=== PATIENT | female | born 1950 | race African-American/Black ===

== ENCOUNTER 2017-06-08 17:04 | Inpatient (IN) | payer MEDICARE ==
[2017-06-08] MEDS: Acetaminophen 500 MG TAB PO PRN (19:39)
[2017-06-08] MEDS ORDERED: Lorazepam 0.5 MG TAB PO SCH (21:00)
[2017-06-08] MEDS: Lorazepam 1 MG TAB PO SCH (21:01)
[2017-06-08] MEDS: Famotidine 20 MG TAB PO SCH (21:01)
[2017-06-08] MEDS: Gabapentin 100 MG CAP PO SCH (21:02)
[2017-06-08] MEDS: Levemir Flexpen 100 UNITS/ML PEN SC SCH (21:02)
[2017-06-08] MEDS: Carvedilol 25 MG TAB PO SCH (21:02)
[2017-06-09 05:59] LABS: ALT (SGPT) 6 U/L (8-55); AST (SGOT) 11 U/L (5-34); Albumin 2.9 g/dL (3.4-4.8); Alkaline Phosphatase 60 U/L (40-150); Anion Gap 15 mmol/L (10-20); BUN (Urea Nitrogen) 114 mg/dL (9.8-20.1); Bilirubin, Total 0.3 mg/dL (0.2-1.2); Calc. Creatinine Clearance 52 mL/min (70-130); Calcium 9.4 mg/dL (7.8-10.44); Carbon Dioxide 27 mmol/L (23-31); Chloride 105 mmol/L (98-107); Estimated GFR-MDRD 25; Globulin 4.3 g/dL (2.4-3.5); Glucose 159 mg/dL (80-115); Potassium 5.2 mmol/L (3.5-5.1); Protein, Total 7.2 g/dL (6.0-8.3); Sodium 142 mmol/L (136-145)
[2017-06-09 06:00] LABS: #Basophils 0.1 thou/uL (0.0-0.2); #Eosinphils 0.3 thou/uL (0.0-0.7); #Lymphocytes 1.3 thou/uL (1.20-3.40); #Neutrophils 6.4 thou/uL (1.40-6.50); %Basophils 1.2 % (0.0-1.0); %Eosinophils 3.3 % (0.0-10.0); %Lymphocytes 13.8 % (21.0-51.0); %Monocytes 11.3 % (0.0-10.0); %Neutrophils 70.4 % (42.0-75.0); Hemoglobin 7.4 g/dL (12.0-16.0); Hypochromia MARKED = >30 cells (100X) (0-5/hpf); MDiff Complete? YES; Mean Corpuscular HGB CONC 29.8 g/dL (32.0-36.0); Mean Corpuscular Hemoglobin 24.8 pg (27.0-31.0); Mean Corpuscular Volume 83.1 fl (81.0-99.0); PLT Morphology Comment Appears Adequate; Platelet Count 284 thou/uL (130-400); RBC Distribution Width 15.5 % (11.5-14.5); Red Blood Cell (RBC) Count 2.99 mill/uL (4.20-5.40)
[2017-06-09] MEDS ORDERED: FLU VACC QS2017-18 36 mo. & older 0.5 ML SYRINGE IM ONE (09:00)
[2017-06-09] MEDS ORDERED: Potassium Chloride 20 MEQ TAB PO SCH (09:00)
[2017-06-09] MEDS ORDERED: Prevnar 13-Val Conj/PF 0.5 ML SYRINGE IM ONE (09:00)
[2017-06-09] MEDS ORDERED: Anastrozole 1 MG TAB PO SCH (09:00)
[2017-06-09] MEDS ORDERED: Meloxicam 7.5 MG TAB PO SCH (09:00)
[2017-06-09] MEDS ORDERED: Furosemide 80 MG TAB PO SCH (09:00)
[2017-06-09] MEDS: Gabapentin 100 MG CAP PO SCH (09:36)
[2017-06-09] MEDS: Carvedilol 25 MG TAB PO SCH ×2 (09:36→20:21)
[2017-06-09] MEDS: Famotidine 20 MG TAB PO SCH (09:36)
[2017-06-09] MEDS: Levemir Flexpen 100 UNITS/ML PEN SC SCH ×2 (09:44→20:31)
--- NOTE | 2017-06-09 10:29 | RAD ---
PORTABLE CHEST: History: Malignant right pleural effusion. History of breast cancer. FINDINGS: Heart size is markedly enlarged. Pulmonary vessels appear engorged. There appears to be a large right sided pleural effusion with associated atelectasis in the right base. IMPRESSION: Cardiomegaly with pulmonary vasculature engorgement suggesting an element of edema. There is also a l arge pleural effusion. POS: [facility]
--- NOTE | 2017-06-09 11:03 | HP ---
DATE OF ADMISSION: 06/08/2017 HISTORY OF PRESENT ILLNESS: The patient is a very pleasant 66-year-old black female admitted to [facility] on 06/01/2017 with shortness of breath and edema, was found to have an exa cerbation of diastolic heart failure. She has a history of chronic kidney disease stage 4 secondary to diabetes being followed by Dr. Lewis and was seen and felt to be stable for diuresis. She was d iuresed over the next several days, felt much better. Her renal function remained stable with GFR ar ound 25. She continued to have problems with pain in her feet; however, secondary to diabetic neurop athy which has been there for years, but was exacerbated by this admission. Her Accu-Cheks remained fairly stable, ranging from 150-200. She, however, was found to have mild right hydronephrosis and a n E. coli urinary tract infection, was treated with antibiotics with resolution, but she was also fou nd to have a right pleural effusion, which appears to be loculated on CT scan, but thoracentesis unde r scan was done and returned positive for malignant cells. She has a history of cancer of the breast , status post left mastectomy 10 years ago, being followed by Dr. Edmonds with appointment to be sche duled soon. At this time, the patient feels well except for her neuropathy in her feet. No shortnes s of breath, chest pain, palpitations, nausea, and vomiting. She is taking her medications of Arimi dex 1 mg daily, carvedilol 25 twice daily, famotidine 20 twice daily, furosemide 80 daily, Levemir 16 units twice daily, lorazepam 0.5 at night, Meloxicam 15 daily, Protonix 40 daily, K-Dur 20 mEq daily . ALLERGIES: She has no known allergies. SOCIAL HISTORY: She is a nonsmoker, nondrinker. She lives at home, was able to maintain ADLs before this. REVIEW OF SYSTEMS: HEENT: She denies any headaches, dizziness, chest pain, shortness of breath at rest. CARDIOVASCULAR: She denies palpitations, orthopnea, paroxysmal nocturnal dyspnea or edema. GASTROINTESTINAL: She denies any nausea, vomiting, diarrhea, constipation, abdominal pain. GENITOURINARY: She denies any dysuria or hematuria. MUSCULOSKELETAL: She complains of pain in her feet and minimally in her knees. PHYSICAL EXAMINATION: GENERAL: The patient is a morbidly obese black female in no acute distress, oriented x3 and cooperat miles. VITAL SIGNS: Temperature 97.1, pulse 82, respirations 22, O2 sats 92%, blood pressure 141/61. HEENT: Pupils are equal, round, and react to light and accommodation. Sclerae are anicteric, Conjun ctivae pale. Oral mucous membranes are well hydrated. NECK: Supple. There are no nodes or masses. JVP is not elevated. LUNGS: Show minimal decreased breath sounds in the right base. No rales or rhonchi. CARDIAC: Displays regular rhythm, no gallops or murmurs. There is a left mastectomy healed well. ABDOMEN: Obese and nontender with no masses or organomegaly. SKIN/EXTREMITIES: Display morbid obesity. No clubbing, cyanosis, some mild crepitance in the knees. NEUROLOGIC: Shows tenderness to feather touch of the feet. Normal sensation and strength. Cranial nerves are intact. LABORATORY: Shows white count 9000, hematocrit 24, hemoglobin 7.4, platelet count 284,000. Sodium 1 42, potassium 5.2, chloride 105, bicarbonate 27, BUN 114, creatinine 1.99, glucose 159, calcium 9.4, total bilirubin 0.3, AST 11, alkaline phosphatase 60, albumin 2.9, globulin 4.3. Chest x-ray this morning to my evaluation shows cardiomegaly, recurrent right pleural effusion. ASSESSMENT AND PLAN: A 66-year-old black female with a history of recent urinary tract infection sec ondary to Escherichia coli and exacerbation of congestive heart failure, has diuresed well with IV La six. She was transferred to [facility] for continued physical therapy and occupational th erapy. She has been found to have probably malignant pleural effusion with abnormal thoracentesis wi th malignant cells consistent with recurrence from breast cancer status post mastectomy 10 years ago. Her chronic kidney disease stage 4 has remained stable, is very tenuous with a BUN of 100, creatini ne 1.99. She, however, is asymptomatic at this time and will continue on her oral furosemide. She w ill follow up with Dr. Edmonds today. We will follow renal function closely as well as respiratory f unction and may need a pleurodesis by Cardiovascular Surgery. She will be continued on Rocephin unti l 06/12/2017 and be started on PT and OT as tolerated.
[2017-06-09] MEDS ORDERED: Sterile Water 10 ML ONE (11:11)
[2017-06-09] MEDS: cefTRIAXone\\ROCEPHIN 1 GM in Sodium Chloride 0.9% 100 ML IVPB SCH (11:29)
[2017-06-09 11:49] LABS: Bilirubin Negative (Negative); Blood, Urine Negative (Negative); Clarity Clear (Clear); Glucose, Urine (Dipstick) Negative (Negative); Leukocyte Negative (Negative); Nitrite Negative (Negative); Protein, Urine (Dipstick) Trace mg/dL (Neg-Trace); Urobilinogen 0.2 mg/dL (0.2-1.0)
[2017-06-09 11:56] LABS: Bacteria/HPF Rare-Few HPF (None Seen); Other Microscopic Description NO; RBC/HPF None Seen HPF (0-3); Squamous Epithelial 0-3 HPF (0-3); WBC/HPF 0-3 HPF (0-3)
[2017-06-09 13:22] VITALS: BMI 38.7
[2017-06-09] MEDS: Gabapentin 300 MG CAP PO SCH ×2 (15:15→20:21)
[2017-06-09] MEDS: Acetaminophen 500 MG TAB PO PRN (20:21)
[2017-06-09] MEDS: Lorazepam 1 MG TAB PO SCH (20:21)
[2017-06-09] MEDS: Loratadine 10 MG TAB PO SCH (20:29)
[2017-06-10 05:49] LABS: Anion Gap 16 mmol/L (10-20); BUN (Urea Nitrogen) 123 mg/dL (9.8-20.1); Calc. Creatinine Clearance 43 mL/min (70-130); Calcium 9.4 mg/dL (7.8-10.44); Carbon Dioxide 24 mmol/L (23-31); Chloride 103 mmol/L (98-107); Estimated GFR-MDRD 20; Glucose 229 mg/dL (80-115); Potassium 5.8 mmol/L (3.5-5.1); Sodium 137 mmol/L (136-145)
--- NOTE | 2017-06-10 08:17 | PRG ---
DATE OF SERVICE: 06/10/2017 SUBJECTIVE: The patient is a 66-year-old black female with a history of congestive heart failure and recent urinary tract infection was found also to have a malignant pleural effusion, most likely due to recurrent breast cancer been seen by Dr. Edmonds and changed from Arimidex to tamoxifen. She has also been diuresed at [facility] while monitoring her renal function which has be en stable on 80 mg of Lasix daily. However, shortness of breath has improved, but still has improved and considering decrease in the dose. LABORATORY DATA: Show that her renal function has deteriorated over the last day with creatinine inc reasing from 1.99-2.42 and GFR decreasing from 25-20. Her sodium is 137, potassium 5.8, chloride 103 , bicarbonate 24, BUN is up to 123 and creatinine is up to 2.42. Accu-Cheks ranged from 154-350. PHYSICAL EXAMINATION: LUNGS: Show decreased breath sounds. Absent breath sounds in the right base. Few crackles in the l eft base. IMAGING DATA: Chest x-ray done yesterday showed cardiomegaly and pulmonary vascular congestion in ad dition to the right pleural effusion. ASSESSMENT: 1. Congestive heart failure with decompensation, slowly improving on Lasix, but now with increased r enal failure on 80 mg of furosemide daily and we will decrease dose to 40 mg daily. Monitor renal fu nction and congestive heart failure and we will repeat BNP and BMP in the a.m. We will also disconti nue potassium supplementation, has had become hyperkalemic. 2. Recurrent breast cancer with malignant effusion on tamoxifen, we will monitor closely as may need elective thoracentesis and pleurodesis if becomes symptomatic. 3. Uncontrolled diabetes on Levemir 16 units twice daily and we will increase to 20 units in the mor archie and 16 units at night. 4. Escherichia coli urinary tract infection, resolving on Rocephin for 1 more day. PLAN: 1. Decrease furosemide 40 daily. 2. Stop potassium. 3. Repeat basic metabolic profile and BNP in the a.m. Chest x-ray in the a.m. 4. Increase Levemir to 20 units in the morning. Continue 16 units at night. Continue Accu-Cheks.
[2017-06-10] MEDS: Gabapentin 300 MG CAP PO SCH ×3 (08:55→20:27)
[2017-06-10] MEDS: Furosemide 40 MG TAB PO SCH (08:55)
[2017-06-10] MEDS: Carvedilol 25 MG TAB PO SCH ×2 (08:55→20:27)
[2017-06-10] MEDS: Famotidine 20 MG TAB PO SCH (08:55)
[2017-06-10] MEDS ORDERED: Levemir Flexpen 100 UNITS/ML PEN SC SCH (09:00)
[2017-06-10] MEDS ORDERED: Loratadine 10 MG TAB PO SCH (09:00)
[2017-06-10] MEDS: cefTRIAXone\\ROCEPHIN 1 GM in Sodium Chloride 0.9% 100 ML IVPB SCH (11:27)
[2017-06-10] MEDS: Loratadine 10 MG TAB PO SCH (14:37)
[2017-06-10] MEDS: Acetaminophen 500 MG TAB PO PRN (14:40)
[2017-06-10] MEDS: Lorazepam 1 MG TAB PO SCH (20:27)
[2017-06-10] MEDS: Levemir Flexpen 100 UNITS/ML PEN SC SCH (20:30)
[2017-06-11 06:04] LABS: Anion Gap 16 mmol/L (10-20); Calc. Creatinine Clearance 43 mL/min (70-130); Calcium 9.4 mg/dL (7.8-10.44); Carbon Dioxide 25 mmol/L (23-31); Chloride 101 mmol/L (98-107); Estimated GFR-MDRD 20; Glucose 259 mg/dL (80-115); Potassium 6.2 mmol/L (3.5-5.1); Sodium 136 mmol/L (136-145)
[2017-06-11 06:27] LABS: BUN (Urea Nitrogen) 118 mg/dL (9.8-20.1)
[2017-06-11] MEDS: Levemir Flexpen 100 UNITS/ML PEN SC SCH ×2 (08:24→21:20)
[2017-06-11] MEDS: Acetaminophen 500 MG TAB PO PRN (08:25)
[2017-06-11] MEDS: Carvedilol 25 MG TAB PO SCH ×2 (08:25→21:20)
[2017-06-11] MEDS: Furosemide 40 MG TAB PO SCH (08:25)
[2017-06-11] MEDS: Famotidine 20 MG TAB PO SCH (08:25)
[2017-06-11] MEDS: Gabapentin 300 MG CAP PO SCH ×3 (08:25→21:19)
[2017-06-11] MEDS: cefTRIAXone\\ROCEPHIN 1 GM in Sodium Chloride 0.9% 100 ML IVPB SCH (11:41)
--- NOTE | 2017-06-11 12:49 | PRG ---
DATE OF SERVICE: 06/11/2017 SUBJECTIVE: The patient is a 66-year-old white female admitted from [facility] a fter diastolic heart failure and chronic kidney disease, felt to possibly due to Escherichia coli uri nary tract infection. There, she was also found to have a malignant right pleural effusion, most lik franca secondary to recurrent breast cancer. She has been changed from her Arimidex to tamoxifen by Dr. Edmonds and has been monitored for improvement in pleural effusion. Her urinary tract infection has resolved and she states she is having no dyspnea. She has also a history of chronic kidney disease secondary to diabetes, been followed by Dr. Lewis with gentle diuresis. However, today she does ap peared to be in more respiratory distress, although she denies this. She denies any cough, sputum pr oduction, fever, or chest pain. OBJECTIVE: Temperature is 97.7, pulse is 78, respirations 20, O2 sats 95% on 2 liters, blood pressur e 184/80. LABORATORY DATA: Accu-Cheks still showed poor control of diabetes ranging from 230 in the morning to 367 in the afternoon on 20 units of Levemir in the morning and 16 units at night. She was also foun d to have elevated potassium to 6.2 today with sodium 136, chloride 101, bicarbonate 28, BUN 118, and creatinine 2.4. ASSESSMENT AND PLAN: 1. A 66-year-old black female with a history of malignant pleural effusion secondary to breast cance r switched from Arimidex, tamoxifen with some respiratory distress, but no complaints and we will rep eat chest x-ray. 2. Uncontrolled diabetes on Levemir 16 units at night and 20 in the morning. We will increase to 24 in the morning and 16 at night and stress diet . 3. Worsening renal failure on furosemide 40 daily secondary to uncontrolled diabetes and diabetic ki dney disease. We will give Kayexalate 30 grams today for hyperkalemia and we will hold furosemide an d if x-ray shows worsening congestive heart failure, may need to transfer back to acute care hospital .
[2017-06-11 15:36] LABS: Anion Gap 17 mmol/L (10-20); Calc. Creatinine Clearance 41 mL/min (70-130); Calcium 9.2 mg/dL (7.8-10.44); Carbon Dioxide 24 mmol/L (23-31); Chloride 102 mmol/L (98-107); Estimated GFR-MDRD 19; Glucose 315 mg/dL (80-115); Sodium 137 mmol/L (136-145)
[2017-06-11 16:22] LABS: BUN (Urea Nitrogen) 19 mg/dL (9.8-20.1)
[2017-06-11] MEDS ORDERED: Furosemide 40 MG/4 ML VIAL SLOW IVP SCH (19:15)
--- NOTE | 2017-06-11 20:47 | RAD ---
PORTABLE CHEST ONE VIEW: Date: 06-11-17 Time: 7:41 p.m. History: Shortness of breath. Wheezing. FINDINGS: Comparison made with exam of 06-09-17. The heart size is enlarged. There is pulmonary vascular congestion and a large pleural effusion. IMPRESSION: Stable exam. POS: [facility]
[2017-06-11] MEDS: Lorazepam 1 MG TAB PO SCH (21:20)
[2017-06-11] MEDS: Loratadine 10 MG TAB PO SCH (21:20)
[2017-06-12 05:52] LABS: Anion Gap 17 mmol/L (10-20); Calc. Creatinine Clearance 45 mL/min (70-130); Calcium 9.4 mg/dL (7.8-10.44); Carbon Dioxide 24 mmol/L (23-31); Chloride 103 mmol/L (98-107); Estimated GFR-MDRD 21; Glucose 256 mg/dL (80-115); Potassium 5.9 mmol/L (3.5-5.1); Sodium 138 mmol/L (136-145)
[2017-06-12 06:05] LABS: BUN (Urea Nitrogen) 126 mg/dL (9.8-20.1)
[2017-06-12 08:15] VITALS: BP 135/63
[2017-06-12] MEDS: Carvedilol 25 MG TAB PO SCH (10:03)
[2017-06-12] MEDS: Famotidine 20 MG TAB PO SCH (10:03)
[2017-06-12] MEDS: Gabapentin 300 MG CAP PO SCH (10:04)
[2017-06-12] MEDS: Levemir Flexpen 100 UNITS/ML PEN SC SCH (10:04)
[2017-06-12 10:54] VITALS: TEMP 98.6
--- NOTE | 2017-06-12 11:44 | DIS ---
DATE OF ADMISSION: 06/08/2017 DATE OF DISCHARGE: Transfer to [facility], 06/12/2017 FINAL DIAGNOSES: 1. Increasing malignant right pleural effusion secondary to adenocarcinoma of the breast with subseq uent respiratory compromise. 2. Diastolic heart failure with exacerbation, improving slightly with IV diuretics. 3. Chronic kidney disease, stage 4, slightly deteriorating with IV diuretics. 4. Poorly controlled insulin-dependent diabetes mellitus. This was gradually increasing doses of Le vemir. 5. Resolved Escherichia coli urinary tract infection, recently finished a course of IV Rocephin. No evidence of recurrence. 6. History of cancer of the breast, status post left mastectomy 10 years ago with recent recurrence despite treatment with Arimidex, now on tamoxifen. HOSPITAL COURSE: The patient is a very pleasant 66-year-old black female, transferred from [facility] where she had been admitted on 06/01/2017 with exacerbation of her diastolic he art failure. This was felt this was possibly due to an E. coli urinary tract infection, mild hydrone phrosis, and was treated with IV antibiotics with resolution of infection. Her congestive heart fail ure was treated carefully, as she does have chronic kidney disease, stage 4, secondary to diabetes an d was followed by Dr. Lewis and felt to be stable on oral diuresis and felt to be improving, but sh e had a right pleural effusion, which is new onset, did not appear to improve. This was tapped with thoracentesis revealing positive malignant cells consistent with recurrent adenocarcinoma of the [address]. At that time, it was felt that this was not causing her symptoms. She was improving. She was t ransferred to [facility] on 06/08/2017 for PT and OT and then to follow up with her oncolo gist, Dr. Edmonds, as an outpatient. At that time, she was on Levemir 16 units twice daily, carvedil ol 25 twice daily, Arimidex 1 mg daily, furosemide 80 p.o. daily, famotidine 20 twice daily. She was seen by Dr. 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 This did incur of the fact over the ne xt several days despite increasing her furosemide to 80 mg orally daily. She became more and more re spiratory distress, requiring increased oxygen to 3-1/2 liters to maintain a sat of 93%, pulse was st able at 86-90 with respirations of 18, blood pressure 135/63; however, her lung examination continued to show rales, rhonchi, some wheezes with absent breath sounds on the right. Her renal function beg an to deteriorate further with a creatinine increasing to 2.55, but then stabilized at 2.3, which was slightly worse than her initial creatinine of 1.99. Potassium was initially borderline elevated at 5.2, but she was on potassium and it increased to 6.0. This was discontinued and her potassium stabi lized to 5.9. BUN, however, was elevated at 114 on admission and it increased to 126. It was theref ore felt that further diuresis was not improving her respiratory status, it was worsening her renal f unction, and she required a thoracentesis. Dr. Norton at [facility] accepted the patient in transfer for treatment of the right malignant pleural effusion with thorac entesis and possible pleurodesis and for further follow up with supervisor varnish, Dr. Chamorro. On discharge , her medications had changed to Levemir 24 units in the morning and 16 units in the evening as her A ccu-Cheks still remain uncontrolled at 250-300. She was on the hand-held nebulizers with DuoNeb q.4 hours as needed, continue on her carvedilol 25 twice daily. Her Rocephin for urinary tract infection had finished its course and was discontinued. She was continued on famotidine 20 daily, gabapentin 300 three times daily, lorazepam 0.5 mg at night, Protonix 40 daily, tamoxifen 20 daily.
== END 2017-06-12 11:17 | disposition short-term general hospital (02) | DRG 292 ==
LOC: NAV ACUTE 17:04
PROVIDERS: ADMIT Internal Medicine; ATTEND Internal Medicine
DX: I50.33 Acute on chronic diastolic (congestive) heart failure (principal); N18.4 Chronic kidney disease, stage 4 (severe); J91.0 Malignant pleural effusion; E11.22 Type 2 diabetes mellitus with diabetic chronic kidney disease; E11.40 Type 2 diabetes mellitus with diabetic neuropathy, unspecified; E11.65 Type 2 diabetes mellitus with hyperglycemia; E66.01 Morbid (severe) obesity due to excess calories; N39.0 Urinary tract infection, site not specified; C50.919 Malignant neoplasm of unspecified site of unspecified female breast; B96.20 Unspecified Escherichia coli [E. coli] as the cause of diseases classified elsewhere; Z79.4 Long term (current) use of insulin; Z68.38 Body mass index [BMI] 38.0-38.9, adult
CPT/HCPCS: 36416; 71045; 80048; 80053; 81001; 85025; 36415-59; A4216; A4353; G8978-GP-CL; G8979-GP-CJ; J0696; J1815; J1940; J7050; J7620

== ENCOUNTER 2017-06-23 14:08 | Inpatient (IN) | payer MEDICARE ==
[2017-06-23] MEDS: Vancomycin HCl 125 MG Capsule PO SCH (17:09)
[2017-06-23] MEDS: Ferrous Sulfate 325 MG TAB PO SCH (17:09)
[2017-06-23] MEDS: Senokot S 8.6-50 MG TAB PO SCH ×2 (17:09→21:29)
[2017-06-23] MEDS: Acetaminophen 325 MG TAB PO PRN (17:09)
[2017-06-23] MEDS: metroNIDAZOLE 500 MG TAB PO SCH (21:28)
[2017-06-23] MEDS: Docusate 100 MG CAP PO SCH (21:28)
[2017-06-23] MEDS: Ascorbic Acid 500 mg Chewable Tablet PO SCH (21:28)
[2017-06-23] MEDS: Ondansetron ODT 4 MG TAB PO SCH (21:29)
[2017-06-23] MEDS: Gabapentin 100 MG CAP PO SCH (21:29)
[2017-06-23] MEDS: Carvedilol 25 MG TAB PO SCH (21:29)
[2017-06-23] MEDS: Levemir Flexpen 100 UNITS/ML PEN SC SCH (21:30)
[2017-06-24] MEDS: Vancomycin HCl 125 MG Capsule PO SCH ×4 (01:07→17:10)
[2017-06-24 05:39] LABS: #Basophils 0.1 thou/uL (0.0-0.2); #Eosinphils 0.3 thou/uL (0.0-0.7); #Lymphocytes 1.6 thou/uL (1.20-3.40); #Monocytes 1.1 thou/uL (0.11-0.59); #Neutrophils 7.3 thou/uL (1.40-6.50); %Basophils 1.4 % (0.0-1.0); %Lymphocytes 15.3 % (21.0-51.0); %Monocytes 10.6 % (0.0-10.0); %Neutrophils 69.7 % (42.0-75.0); Hemoglobin 7.5 g/dL (12.0-16.0); Mean Corpuscular HGB CONC 30.9 g/dL (32.0-36.0); Mean Corpuscular Hemoglobin 25.7 pg (27.0-31.0); Mean Corpuscular Volume 83.3 fl (81.0-99.0); Mean Platelet Volume 6.7 fL (7.4-10.4); Platelet Count 413 thou/uL (130-400); RBC Distribution Width 16.2 % (11.5-14.5); White Blood Cell (WBC) Count 10.5 thou/uL (4.8-10.8)
[2017-06-24 05:51] LABS: Anion Gap 13 mmol/L (10-20); BUN (Urea Nitrogen) 65 mg/dL (9.8-20.1); Calc. Creatinine Clearance 55 mL/min (70-130); Calcium 8.9 mg/dL (7.8-10.44); Carbon Dioxide 23 mmol/L (23-31); Chloride 109 mmol/L (98-107); Estimated GFR-MDRD 27; Glucose 140 mg/dL (80-115); Potassium 5.3 mmol/L (3.5-5.1); Sodium 140 mmol/L (136-145)
[2017-06-24] MEDS: metroNIDAZOLE 500 MG TAB PO SCH ×3 (05:51→21:16)
[2017-06-24] MEDS: Ondansetron ODT 4 MG TAB PO SCH ×3 (05:52→21:16)
[2017-06-24] MEDS: Levemir Flexpen 100 UNITS/ML PEN SC SCH ×2 (07:36→21:17)
[2017-06-24] MEDS ORDERED: Potassium Chloride 20 MEQ TAB PO SCH (09:00)
[2017-06-24] MEDS: Ferrous Sulfate 325 MG TAB PO SCH ×2 (09:37→17:07)
[2017-06-24] MEDS: Ascorbic Acid 500 mg Chewable Tablet PO SCH ×2 (09:37→21:16)
[2017-06-24] MEDS: Amlodipine 5 MG TAB PO SCH (09:38)
[2017-06-24] MEDS: Gabapentin 100 MG CAP PO SCH ×3 (09:38→21:16)
[2017-06-24] MEDS: Famotidine 20 MG TAB PO SCH (09:38)
[2017-06-24] MEDS: Docusate 100 MG CAP PO SCH ×2 (09:38→21:16)
[2017-06-24] MEDS: Carvedilol 25 MG TAB PO SCH ×2 (09:38→21:16)
[2017-06-24] MEDS: Furosemide 80 MG TAB PO SCH (09:38)
[2017-06-24] MEDS: Senokot S 8.6-50 MG TAB PO SCH ×4 (09:39→21:16)
[2017-06-24] MEDS: Dronabinol 2.5 MG CAP PO SCH (13:01)
--- NOTE | 2017-06-24 15:29 | HP ---
DATE OF ADMISSION: 06/23/2017 DATE OF EXAMINATION: 06/24/2017 CHIEF COMPLAINT: 1. C. diff colitis. 2. Recurrent right pleural effusion malignant due to adenocarcinoma of the breast. 3. Chronic diastolic congestive heart failure. 4. Chronic kidney disease. BRIEF HISTORY: This is a pleasant 66-year-old overweight -Pakistani female, who was admitted h [facility] initially on 06/01/2017 with exacerbation of diastolic heart failure. She also was noted to have E. coli, UTI, and mild hydronephrosis. She was also noted to have a right pleural effusion, which w as tapped showing malignant cells consistent with metastasis from adenocarcinoma of the breast. She unfortunately developed worsening respiratory distress with deterioration of renal function and so wa s transferred back to [facility] on 06/12/2017. She again had a repeat thoracent esis done and was also diagnosed with C. diff colitis. She is currently on 80 mg of Lasix and on Fla gyl and vancomycin. Her renal functions have been stable. She was deemed stable for return back her e for continued physical therapy. Currently, the patient denies any complaints. Her family is in [facility] room. She denies any chest pain or shortness of breath. Her diarrhea is much improved. Denies an y fever or chills. PAST MEDICAL HISTORY: 1. Chronic diastolic congestive heart failure. 2. 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 3. Chronic kidney disease, stage 4. 4. Diabetes mellitus type 2, not well controlled. 5. Diabetic peripheral neuropathy. 6. Gastroesophageal reflux disease. PAST SURGICAL HISTORY: Multiple thoracenteses. ALLERGIES: No known drug allergies. MEDICATIONS: She has been transferred here on the following medications, 1. Tylenol 650 q.4 hours p.r.n. 2. Norvasc 2.5 mg daily. 3. Carvedilol 25 mg b.i.d. 4. Marinol 5 mg at 2:00 p.m. 5. Pepcid 20 mg daily. 6. Iron sulfate 325 mg b.i.d. 7. Lasix 80 mg daily. 8. Neurontin 100 mg daily. 9. Levemir 32 units at bedtime and 22 units in the morning. 10. Flagyl 500 mg q.8 hours. 11. Zofran ODT 8 mg. 12. Tamoxifen 20 mg daily. 13. Vancomycin 250 p.o. q. 6 hours. 14. Potassium 20 mEq daily. FAMILY HISTORY: Noncontributory to current admission. PSYCHOSOCIAL HISTORY: No documented tobacco, alcohol, or IV drug abuse. REVIEW OF SYSTEMS: CARDIOVASCULAR: Denies any chest pain, shortness of breath, palpitations, paroxysmal nocturnal dyspn ea, orthopnea, pedal edema. RESPIRATORY: Denies any chronic cough, expectoration, or pleuritic type chest pain. GASTROINTESTINAL: Denies any nausea or vomiting. Her diarrhea is much improved. Denies any hematem esis, melena, hematochezia. GENITOURINARY: Denies any frequency, urgency, dysuria, or hematuria. CENTRAL NERVOUS SYSTEM: No focal numbness, weakness, fainting spells. HEENT: No difficult speech, vision, hearing, or swallowing. PHYSICAL EXAMINATION: GENERAL: Very pleasant 66-year-old -Pakistani female who is morbidly obese, is resting comfort ably in no apparent distress. Her daughter is in the room. VITAL SIGNS: She is afebrile, heart rate is 82, respirations 22, oxygen saturation is marked as 85% on room air, and blood pressure is 92/44. HEENT: Normocephalic, atraumatic. Pupils equally reactive to light and accommodation. NECK: No JVD, thyromegaly, cervical adenopathy, throat exudates, or carotid bruits. CARDIOVASCULAR: S1, S2 plus, rate and rhythm regular. RESPIRATORY SYSTEM: Normal vesicular breath sounds heard in all lung cabrera. ABDOMEN: Soft, obese, nontender. Bowel sounds heard in all quadrants. EXTREMITIES: Without cyanosis or clubbing. Chronic stasis dermatitis. CENTRAL NERVOUS SYSTEM: Generalized weakness. LABORATORY VALUES: White count is 10.5, H&H is 7.5 and 24.2. Sodium 140, potassium is high at 5.3. BUN and creatinine 65 and 1.89. Blood sugars are 241, 209, 143, 162. IMPRESSION: 1. Clostridium difficile colitis, improving. 2. Chronic diastolic congestive heart failure. 3. Chronic kidney disease, stage 4. 4. Hyperkalemia. 5. Diabetes mellitus type 2. 6. Hypoxemia. 7. Morbid obesity. 8. Adenocarcinoma of the breast with malignant right pleural effusion and deconditioning. PLAN: 1. Stop potassium supplement. 2. Continue to monitor renal function. 3. Oxygen to keep saturation greater than 92%. 4. DVT and stress ulcer prophylaxis. 5. Decubitus precautions. 6. Physical therapy and occupational therapy. 7. Monitor respiratory status. 8. Accu-Cheks with sliding scale coverage. 9. Discussed with patient and daughter in detail and all questions answered.
[2017-06-24] MEDS: Acetaminophen 325 MG TAB PO PRN (21:16)
[2017-06-25] MEDS: Vancomycin HCl 125 MG Capsule PO SCH ×4 (00:51→18:16)
[2017-06-25 05:35] LABS: #Basophils 0.1 thou/uL (0.0-0.2); #Eosinphils 0.5 thou/uL (0.0-0.7); #Monocytes 1.1 thou/uL (0.11-0.59); #Neutrophils 7.6 thou/uL (1.40-6.50); %Basophils 1.2 % (0.0-1.0); %Eosinophils 4.1 % (0.0-10.0); %Monocytes 9.3 % (0.0-10.0); %Neutrophils 67.5 % (42.0-75.0); Hemoglobin 7.6 g/dL (12.0-16.0); Mean Corpuscular HGB CONC 29.5 g/dL (32.0-36.0); Mean Corpuscular Hemoglobin 25.1 pg (27.0-31.0); Mean Platelet Volume 6.1 fL (7.4-10.4); Platelet Count 403 thou/uL (130-400); RBC Distribution Width 16.7 % (11.5-14.5); Red Blood Cell (RBC) Count 3.04 mill/uL (4.20-5.40); White Blood Cell (WBC) Count 11.3 thou/uL (4.8-10.8)
[2017-06-25 05:40] LABS: Anion Gap 15 mmol/L (10-20); BUN (Urea Nitrogen) 72 mg/dL (9.8-20.1); Calc. Creatinine Clearance 40 mL/min (70-130); Calcium 9.2 mg/dL (7.8-10.44); Carbon Dioxide 22 mmol/L (23-31); Chloride 109 mmol/L (98-107); Estimated GFR-MDRD 19; Glucose 121 mg/dL (80-115); Potassium 5.8 mmol/L (3.5-5.1); Sodium 140 mmol/L (136-145)
[2017-06-25] MEDS: metroNIDAZOLE 500 MG TAB PO SCH ×3 (06:06→20:29)
[2017-06-25] MEDS: Ondansetron ODT 4 MG TAB PO SCH ×3 (06:06→20:29)
[2017-06-25] MEDS: Levemir Flexpen 100 UNITS/ML PEN SC SCH ×2 (07:31→20:28)
[2017-06-25] MEDS: Furosemide 80 MG TAB PO SCH (09:30)
[2017-06-25] MEDS: Gabapentin 100 MG CAP PO SCH ×3 (09:30→20:29)
[2017-06-25] MEDS: Amlodipine 5 MG TAB PO SCH (09:30)
[2017-06-25] MEDS: Famotidine 20 MG TAB PO SCH (09:30)
[2017-06-25] MEDS: Ferrous Sulfate 325 MG TAB PO SCH ×2 (09:30→17:16)
[2017-06-25] MEDS: Carvedilol 25 MG TAB PO SCH ×2 (09:30→20:29)
[2017-06-25] MEDS: Saccharomyces boulardii 250 MG CAP PO SCH (09:30)
[2017-06-25] MEDS: Senokot S 8.6-50 MG TAB PO SCH ×4 (09:31→20:29)
[2017-06-25] MEDS: Docusate 100 MG CAP PO SCH ×2 (09:31→20:29)
[2017-06-25] MEDS: Ascorbic Acid 500 mg Chewable Tablet PO SCH ×2 (09:31→20:28)
[2017-06-25] MEDS: Dronabinol 2.5 MG CAP PO SCH (15:00)
[2017-06-25] MEDS: Acetaminophen 325 MG TAB PO PRN (20:29)
--- NOTE | 2017-06-25 20:54 | PRG ---
DATE OF SERVICE: 06/25/2017 SUBJECTIVE: Mr. Camargo is doing well. Denies any complaints except for some low back pain. No ra diation. Tylenol helps a little. Her diarrhea has resolved. OBJECTIVE: VITAL SIGNS: He is afebrile, heart rate 76, respirations 20, oxygen saturation 92% on 1.5 liters, bl ood pressure 125/60. CARDIOVASCULAR: S1, S2 plus. RESPIRATORY: Vesicular breath sounds. ABDOMEN: Soft, nontender, bowel sounds heard in all quadrants, obese. EXTREMITIES: Without cyanosis or clubbing. Trace edema. Peripheral pulses are palpable. BACK: Shows some palpable tenderness in the bilateral lower back. LABORATORY VALUES: White count is 11.3, H&H is 7.6 and 25.8, stable. Sodium 140, potassium 5.8, BUN and creatinine 72 and 2.56. Blood sugars are 178, 229, 120 and 165. BUN and creatinine were 65 and 1.89 yesterday. IMPRESSION: 1. Malignant pleural effusion, status post thoracentesis. 2. Diabetes mellitus type 2. 3. Hypertension. 4. Resolving Clostridium difficile colitis. 5. Worsening renal insufficiency. PLAN: 1. Stop Lasix. 2. Continue Tylenol for the pain. 3. Heart healthy ADA diet. 4. Accu-Cheks with sliding scale coverage. 5. Deep venous thrombosis and stress ulcer prophylaxis. 6. Decubitus precautions. 7. Routine laboratory values. 8. Physical therapy.
[2017-06-26] MEDS: Vancomycin HCl 125 MG Capsule PO SCH ×4 (00:56→17:35)
[2017-06-26] MEDS ORDERED: Ondansetron ODT 4 MG TAB ONE (05:11)
[2017-06-26] MEDS: Ondansetron ODT 4 MG TAB PO SCH ×3 (05:22→21:17)
[2017-06-26] MEDS: Acetaminophen 325 MG TAB PO PRN ×2 (05:22→21:18)
[2017-06-26] MEDS: metroNIDAZOLE 500 MG TAB PO SCH ×3 (05:23→21:18)
[2017-06-26 05:37] LABS: #Basophils 0.1 thou/uL (0.0-0.2); #Eosinphils 0.3 thou/uL (0.0-0.7); #Lymphocytes 1.4 thou/uL (1.20-3.40); #Monocytes 0.7 thou/uL (0.11-0.59); #Neutrophils 6.9 thou/uL (1.40-6.50); %Basophils 1.3 % (0.0-1.0); %Eosinophils 2.9 % (0.0-10.0); %Lymphocytes 14.7 % (21.0-51.0); %Monocytes 7.7 % (0.0-10.0); %Neutrophils 73.4 % (42.0-75.0); Hemoglobin 7.7 g/dL (12.0-16.0); Mean Corpuscular HGB CONC 29.6 g/dL (32.0-36.0); Mean Corpuscular Hemoglobin 25.5 pg (27.0-31.0); Mean Corpuscular Volume 86.1 fl (81.0-99.0); Mean Platelet Volume 6.3 fL (7.4-10.4); Platelet Count 369 thou/uL (130-400); RBC Distribution Width 16.5 % (11.5-14.5); Red Blood Cell (RBC) Count 3.02 mill/uL (4.20-5.40); White Blood Cell (WBC) Count 9.4 thou/uL (4.8-10.8)
[2017-06-26 05:45] LABS: Anion Gap 17 mmol/L (10-20); BUN (Urea Nitrogen) 77 mg/dL (9.8-20.1); Calc. Creatinine Clearance 39 mL/min (70-130); Calcium 9.3 mg/dL (7.8-10.44); Carbon Dioxide 18 mmol/L (23-31); Chloride 109 mmol/L (98-107); Estimated GFR-MDRD 18; Glucose 135 mg/dL (80-115); Potassium 5.6 mmol/L (3.5-5.1); Sodium 138 mmol/L (136-145)
[2017-06-26] MEDS: Levemir Flexpen 100 UNITS/ML PEN SC SCH ×2 (08:25→21:23)
[2017-06-26] MEDS: Docusate 100 MG CAP PO SCH ×2 (08:27→21:17)
[2017-06-26] MEDS: Amlodipine 5 MG TAB PO SCH (08:27)
[2017-06-26] MEDS: Saccharomyces boulardii 250 MG CAP PO SCH (08:27)
[2017-06-26] MEDS: Ferrous Sulfate 325 MG TAB PO SCH ×2 (08:28→17:35)
[2017-06-26] MEDS: Senokot S 8.6-50 MG TAB PO SCH ×4 (08:28→21:17)
[2017-06-26] MEDS: Famotidine 20 MG TAB PO SCH (08:28)
[2017-06-26] MEDS: Gabapentin 100 MG CAP PO SCH ×3 (08:28→21:17)
[2017-06-26] MEDS: Ascorbic Acid 500 mg Chewable Tablet PO SCH ×2 (08:28→21:18)
[2017-06-26] MEDS: Carvedilol 25 MG TAB PO SCH ×2 (08:28→21:18)
--- NOTE | 2017-06-26 13:23 | PRG ---
DATE OF SERVICE: 06/26/2017 SUBJECTIVE: Ms. Camargo is doing well except for low back pain. Denies any radiation. Denies any numbness or weakness. OBJECTIVE: VITAL SIGNS: She is afebrile, heart rate is 77, respirations 18, oxygen saturation 98% on room air, blood pressure is 111/55. CARDIOVASCULAR SYSTEM: S1 and S2 plus. RESPIRATORY SYSTEM: Normal vesicular breath sounds. ABDOMEN: Soft, obese, nontender. Bowel sounds heard in all quadrants. EXTREMITIES: Without cyanosis or clubbing. CENTRAL NERVOUS SYSTEM: Generalized weakness. LABORATORY VALUES: White count is 9.4, H and H is 7.7 and 26, stable. Sodium 138, potassium is high at 5.6, BUN and creatinine 77 and 2.61. Blood sugars are 165, 190, 243, and 166. Her BUN and creat inine were 72 and 2.56 yesterday with a potassium of 5.8. Both her Lasix and potassium were disconti nued yesterday. IMPRESSION: 1. Resolving Clostridium difficile colitis. 2. Worsening renal insufficiency, likely secondary to over diuresis. 3. Diabetes mellitus, type 2. 4. Low back pain. 5. History of malignant pleural effusion from adenocarcinoma of the breast. 6. Deconditioning. PLAN: 1. Continue to keep Lasix and potassium on hold. 2. Increase Tylenol dosage for her back pain. 3. Continue Accu-Cheks with surgical coverage. 4. An 1800-calorie heart healthy ADA diet. 5. Physical therapy. 6. Routine laboratory values. 7. Discussed with patient in detail. All questions answered.
[2017-06-26] MEDS: Dronabinol 2.5 MG CAP PO SCH (14:15)
[2017-06-26] MEDS ORDERED: Ondansetron ODT 4 MG TAB PO SCH (15:15)
[2017-06-27] MEDS: Vancomycin HCl 125 MG Capsule PO SCH ×4 (02:17→18:13)
[2017-06-27 05:54] LABS: Anion Gap 15 mmol/L (10-20); BUN (Urea Nitrogen) 78 mg/dL (9.8-20.1); Calc. Creatinine Clearance 42 mL/min (70-130); Calcium 9.1 mg/dL (7.8-10.44); Carbon Dioxide 19 mmol/L (23-31); Chloride 109 mmol/L (98-107); Estimated GFR-MDRD 20; Glucose 120 mg/dL (80-115); Potassium 5.2 mmol/L (3.5-5.1); Sodium 138 mmol/L (136-145)
[2017-06-27] MEDS: Ondansetron ODT 4 MG TAB PO SCH ×3 (06:05→20:02)
[2017-06-27] MEDS: metroNIDAZOLE 500 MG TAB PO SCH ×2 (06:06→14:49)
[2017-06-27] MEDS: Saccharomyces boulardii 250 MG CAP PO SCH (09:30)
[2017-06-27] MEDS: Amlodipine 5 MG TAB PO SCH (09:31)
[2017-06-27] MEDS: Senokot S 8.6-50 MG TAB PO SCH ×4 (09:31→20:03)
[2017-06-27] MEDS: Famotidine 20 MG TAB PO SCH (09:31)
[2017-06-27] MEDS: Gabapentin 100 MG CAP PO SCH ×3 (09:31→20:02)
[2017-06-27] MEDS: Ferrous Sulfate 325 MG TAB PO SCH ×2 (09:31→18:13)
[2017-06-27] MEDS: Ascorbic Acid 500 mg Chewable Tablet PO SCH ×2 (09:31→20:02)
[2017-06-27] MEDS: Docusate 100 MG CAP PO SCH ×2 (09:33→20:03)
[2017-06-27] MEDS: Carvedilol 25 MG TAB PO SCH ×2 (09:33→20:03)
[2017-06-27] MEDS: Levemir Flexpen 100 UNITS/ML PEN SC SCH ×2 (09:34→20:03)
[2017-06-27] MEDS: Acetaminophen 325 MG TAB PO PRN ×2 (11:54→18:12)
--- NOTE | 2017-06-27 13:46 | PRG ---
DATE OF SERVICE: 06/27/2017 SUBJECTIVE: Ms. Camargo is doing the same except she is still complaining of back pain, again expla ined to her why I have not started her on any anti-inflammatory medicines. OBJECTIVE: VITAL SIGNS: She is afebrile, heart rate 78, respirations 21, oxygen saturation is 94% on room air, blood pressure 121/57. CARDIOVASCULAR: S1, S2 plus. RESPIRATORY: Normal vesicular breath sounds. ABDOMEN: Soft, nontender, bowel sounds heard in all quadrants. EXTREMITIES: Without cyanosis or clubbing. LABORATORY VALUES: Sodium 138, potassium 5.2, BUN and creatinine are 78 and 2.45. Blood sugar is 20 1, 209, 137 and 239. IMPRESSION: 1. Improving renal dysfunction. 2. Low back pain. We will add a muscle relaxant. 3. Resolving Clostridium difficile colitis. 4. Malignant pleural effusion, status post thoracentesis. 5. Diabetes mellitus type 2, reasonable control. 6. Low back pain. 7. Deconditioning. PLAN: 1. Add Flexeril 5 mg t.i.d. 2. Continue to monitor renal function. 3. Physical therapy. 4. Deep venous thrombosis and stress ulcer prophylaxis. 5. Decubitus precautions. 6. Heart healthy ADA diet. 7. Accu-Cheks with sliding scale coverage. 8. Dr. Justin Reilly wildlife conservation officer now until 9:00 p.m. Monday.
[2017-06-27] MEDS: Dronabinol 2.5 MG CAP PO SCH (14:49)
[2017-06-27] MEDS: Cyclobenzaprine 10 MG TAB PO PRN (18:12)
[2017-06-28] MEDS: Vancomycin HCl 125 MG Capsule PO SCH ×4 (00:51→18:06)
[2017-06-28] MEDS: metroNIDAZOLE 500 MG TAB PO SCH ×4 (00:51→21:21)
[2017-06-28 05:46] LABS: Anion Gap 15 mmol/L (10-20); BUN (Urea Nitrogen) 85 mg/dL (9.8-20.1); Calc. Creatinine Clearance 37 mL/min (70-130); Carbon Dioxide 19 mmol/L (23-31); Chloride 110 mmol/L (98-107); Estimated GFR-MDRD 17; Glucose 123 mg/dL (80-115); Potassium 5.3 mmol/L (3.5-5.1); Sodium 139 mmol/L (136-145)
[2017-06-28] MEDS: Ondansetron ODT 4 MG TAB PO SCH ×3 (05:54→21:21)
[2017-06-28] MEDS: Levemir Flexpen 100 UNITS/ML PEN SC SCH ×2 (07:41→21:22)
[2017-06-28] MEDS: Docusate 100 MG CAP PO SCH ×2 (08:42→21:21)
[2017-06-28] MEDS: Amlodipine 5 MG TAB PO SCH (08:42)
[2017-06-28] MEDS: Saccharomyces boulardii 250 MG CAP PO SCH (08:42)
[2017-06-28] MEDS: Carvedilol 25 MG TAB PO SCH ×2 (08:42→21:21)
[2017-06-28] MEDS: Gabapentin 100 MG CAP PO SCH ×3 (08:43→21:21)
[2017-06-28] MEDS: Ascorbic Acid 500 mg Chewable Tablet PO SCH ×2 (08:43→21:21)
[2017-06-28] MEDS: Famotidine 20 MG TAB PO SCH (08:43)
[2017-06-28] MEDS: Senokot S 8.6-50 MG TAB PO SCH ×4 (08:43→21:21)
[2017-06-28] MEDS: Ferrous Sulfate 325 MG TAB PO SCH ×2 (08:43→17:08)
[2017-06-28] MEDS: Dronabinol 2.5 MG CAP PO SCH (14:43)
[2017-06-28] MEDS: Cyclobenzaprine 10 MG TAB PO PRN (18:08)
[2017-06-28] MEDS: Acetaminophen 325 MG TAB PO PRN (21:21)
[2017-06-29] MEDS: Vancomycin HCl 125 MG Capsule PO SCH ×5 (00:58→22:35)
[2017-06-29] MEDS: metroNIDAZOLE 500 MG TAB PO SCH ×3 (06:04→22:36)
[2017-06-29] MEDS: Ondansetron ODT 4 MG TAB PO SCH ×3 (06:04→22:36)
[2017-06-29] MEDS: Levemir Flexpen 100 UNITS/ML PEN SC SCH ×2 (09:27→22:37)
[2017-06-29] MEDS: Amlodipine 5 MG TAB PO SCH (09:28)
[2017-06-29] MEDS: Senokot S 8.6-50 MG TAB PO SCH ×4 (09:28→22:36)
[2017-06-29] MEDS: Docusate 100 MG CAP PO SCH ×2 (09:28→22:36)
[2017-06-29] MEDS: Cyclobenzaprine 10 MG TAB PO PRN (09:28)
[2017-06-29] MEDS: Ferrous Sulfate 325 MG TAB PO SCH ×2 (09:28→17:30)
[2017-06-29] MEDS: Saccharomyces boulardii 250 MG CAP PO SCH (09:29)
[2017-06-29] MEDS: Carvedilol 25 MG TAB PO SCH ×2 (09:29→22:37)
[2017-06-29] MEDS: Gabapentin 100 MG CAP PO SCH ×3 (09:29→22:37)
[2017-06-29] MEDS: Ascorbic Acid 500 mg Chewable Tablet PO SCH ×2 (09:29→22:36)
[2017-06-29] MEDS: Famotidine 20 MG TAB PO SCH (09:29)
--- NOTE | 2017-06-29 10:49 | PRG ---
DATE OF SERVICE: 06/28/2017 DATE OF ADMISSION: 06/23/2017 HISTORY OF PRESENT ILLNESS: Ms. Camargo is a very pleasant 66-year-old black female with diastolic congestive heart failure. She had Escherichia coli, urinary tract infection and hydronephrosis. She had right pleural effusion that revealed malignant cells consistent with metastatic adenocarcinoma o f the breast after it was tapped. She had worsening respiratory and renal function eventually was tr ansferred to [facility]. Thoracentesis was done. Eventually, she was also found to have C. diff. She is presently on Lasix, Flagyl and vancomycin. She has been stable. She was t ransferred back to [facility] for continued IV antibiotics and diuresis and monitorin g: PHYSICAL EXAMINATION: VITAL SIGNS: Today reveal blood pressure 107/51, pulse 76, respirations 19, O2 sat 93% to 94% on 1-1 /2 to 2 liters, T-max is 97.9. GENERAL: This is a well-developed, well-nourished, very pleasant black female in no apparent distres s at this time. HEENT: Reveals normocephalic, nontraumatic cranium. Pupils are equal, round, and reactive. Extraoc ular movements intact. Nose and throat are slightly dry. NECK: Supple, without mass, nodes or bruits. CHEST: Clear to auscultation. No rales, no rhonchi, no wheezes are heard today. HEART: Reveals a regular rate and rhythm. ABDOMEN: Obese, soft, nontender, without organomegaly, normal bowel sounds are noted in all 4 quadra nts. : Deferred. EXTREMITIES: Reveal no clubbing, cyanosis or edema. The patient does have stasis dermatitis. IMPRESSION: 1. Clostridium difficile colitis, slowly improving. 2. Chronic diastolic congestive heart failure, stable. 3. Chronic kidney disease stage 4. 4. Diabetes type 2. 5. Hyperkalemia. 6. Hypoxemia. 7. Morbid obesity. 8. Adenocarcinoma of the breast with malignant in the right pleural effusion. 9. Generalized weakness. PLAN: 1. Continue to monitor the patient's difficile. 2. Monitor the patient closely for signs and symptoms of congestive heart failure. 3. Continue with Accu-Cheks before meal at bedtime to monitor the patient's diabetes. 4. Monitor the patient's respiratory status. 5. Stress ulcer prophylaxis. 6. DVT prophylaxis. 7. Decubitus precautions. 8. Physical therapy and occupational therapy.
[2017-06-29] MEDS: Dronabinol 2.5 MG CAP PO SCH (14:17)
--- NOTE | 2017-06-29 22:32 | PRG ---
DATE OF ADMISSION: 06/23/2017 DATE OF SERVICE: 06/29/2017 HISTORY OF PRESENT ILLNESS: Ms. Yenifer Camargo is a pleasant 66-year-old white female who presented t o the hospital with diastolic congestive heart failure. She also had a urinary tract infection with E. coli. She had a right pleural effusion that was tapped to reveal malignant cells consistent with metastatic adenocarcinoma of the breast. She had worsening respiratory and renal failure, eventually transferred to [facility]. Thoracentesis was done, which improved her breathing . She also was found to have C. diff. She is presently on Lasix, Flagyl and vancomycin. She is sta ble for transfer back to [facility] for continued treatment and diuresis and monitori ng. OBJECTIVE: VITAL SIGNS: Today reveal blood pressure this morning is 106/49, pulse 74, respirations 20, O2 satur ation 94% on 1.5 liters, T-max is 97.8. GENERAL: This is a well-developed, well-nourished, slightly obese black female, in no apparent distr ess at this time. HEENT: Reveals normocephalic, nontraumatic cranium. Pupils are equal, round, and reactive. Extraoc ular movements are intact. Nose and throat are slightly dry. NECK: Supple, without masses, nodes or bruits. CHEST: Clear to auscultation. No rales, rhonchi, wheezes or cough is heard. CARDIOVASCULAR: Heart reveals a regular rate and rhythm. ABDOMEN: Obese, soft, without organomegaly. Normal bowel sounds are noted in all 4 quadrants. No r ebound or guarding is noted. : Deferred. EXTREMITIES: Reveal no clubbing, cyanosis or edema. The patient does have some stasis dermatitis. IMPRESSION: 1. Clostridium difficile colitis, slowly improving. 2. Chronic diastolic congestive heart failure, stable. 3. Chronic kidney disease, stage 4. 4. Diabetes, type 2. 5. Hyperkalemia. 6. History of hypoxemia. 7. Morbid obesity. 8. Adenocarcinoma of the breast with malignant right pleural effusion. 9. Generalized weakness. PLAN: 1. Continue to monitor the patient's Clostridium difficile. 2. Monitor the patient closely for signs and symptoms of congestive heart failure. 3. Continue to monitor the patient diabetes with Accu-Cheks a.c. and at bedtime. 4. Monitor patient's respiratory status. 5. Stress ulcer prophylaxis. 6. Deep venous thrombosis prophylaxis. 7. Decubitus precautions. 8. PT and OT.
[2017-06-30 06:27] LABS: #Basophils 0.2 thou/uL (0.0-0.2); #Eosinphils 0.4 thou/uL (0.0-0.7); #Lymphocytes 1.9 thou/uL (1.20-3.40); #Monocytes 0.8 thou/uL (0.11-0.59); #Neutrophils 7.7 thou/uL (1.40-6.50); %Basophils 1.5 % (0.0-1.0); %Eosinophils 3.8 % (0.0-10.0); %Lymphocytes 17.1 % (21.0-51.0); %Neutrophils 70.7 % (42.0-75.0); Hemoglobin 6.7 g/dL (12.0-16.0); Mean Corpuscular HGB CONC 29.8 g/dL (32.0-36.0); Mean Corpuscular Hemoglobin 25.4 pg (27.0-31.0); Mean Platelet Volume 5.3 fL (7.4-10.4); Platelet Count 354 thou/uL (130-400); RBC Distribution Width 17.7 % (11.5-14.5); Red Blood Cell (RBC) Count 2.62 mill/uL (4.20-5.40); White Blood Cell (WBC) Count 10.9 thou/uL (4.8-10.8)
[2017-06-30] MEDS: Ondansetron ODT 4 MG TAB PO SCH ×3 (06:28→21:13)
[2017-06-30] MEDS: Vancomycin HCl 125 MG Capsule PO SCH ×4 (06:31→23:46)
[2017-06-30] MEDS: metroNIDAZOLE 500 MG TAB PO SCH ×3 (06:32→21:13)
[2017-06-30 06:37] LABS: Anion Gap 15 mmol/L (10-20); BUN (Urea Nitrogen) 91 mg/dL (9.8-20.1); Calc. Creatinine Clearance 38 mL/min (70-130); Calcium 9.1 mg/dL (7.8-10.44); Carbon Dioxide 17 mmol/L (23-31); Chloride 111 mmol/L (98-107); Estimated GFR-MDRD 17; Glucose 171 mg/dL (80-115); Potassium 5.3 mmol/L (3.5-5.1); Sodium 138 mmol/L (136-145)
[2017-06-30] MEDS: Levemir Flexpen 100 UNITS/ML PEN SC SCH ×2 (07:45→21:15)
[2017-06-30] MEDS: Docusate 100 MG CAP PO SCH ×2 (08:37→21:13)
[2017-06-30] MEDS: Senokot S 8.6-50 MG TAB PO SCH ×4 (08:37→21:13)
[2017-06-30] MEDS: Gabapentin 100 MG CAP PO SCH ×3 (08:37→21:13)
[2017-06-30] MEDS: Amlodipine 5 MG TAB PO SCH (08:39)
[2017-06-30] MEDS: Ferrous Sulfate 325 MG TAB PO SCH ×2 (08:41→17:22)
[2017-06-30] MEDS: Saccharomyces boulardii 250 MG CAP PO SCH (08:41)
[2017-06-30] MEDS: Ascorbic Acid 500 mg Chewable Tablet PO SCH ×2 (08:41→21:13)
[2017-06-30] MEDS: Carvedilol 25 MG TAB PO SCH ×2 (08:41→21:13)
[2017-06-30] MEDS: Famotidine 20 MG TAB PO SCH (08:42)
[2017-06-30] MEDS: Cyclobenzaprine 10 MG TAB PO PRN (08:45)
[2017-06-30] MEDS ORDERED: Sodium Chloride 0.9% 10 ML ONE (12:57)
[2017-06-30] MEDS: Dronabinol 2.5 MG CAP PO SCH (14:25)
[2017-06-30] MEDS ORDERED: Zinc Oxide 16% Ointment 60 gm Tube TOP PRN (22:04)
--- NOTE | 2017-07-01 00:53 | PRG ---
DATE OF ADMISSION: 06/23/2017 DATE OF SERVICE: 06/30/2017 SUBJECTIVE: Ms. Camargo is a very pleasant 66-year-old white female that presented to the hospital with diastolic congestive heart failure. She also was found to have a urinary tract infection with E . coli in her right pleural effusion. The pleural effusion had to be tapped, it was consistent with metastatic adenocarcinoma of the breast. She had worsening respiratory and renal failure, eventually was transferred to [facility] where she was thoracentesed. Her breathing improv ed. She eventually was found to also have C. diff and she was stabilized. She was transferred back to [facility] on Lasix, Flagyl, and vancomycin. PHYSICAL EXAMINATION: VITAL SIGNS: Today reveal blood pressure this morning 113/56, pulse 72, respirations 20 to 21, O2 sa t 97% on 1.5 liters, and T-max is 97.4. GENERAL: This is a well-developed, well-nourished, slightly obese black female in no apparent distre ss at this time. HEENT: Reveals normocephalic, nontraumatic cranium. The pupils are equally round and reactive. Ext raocular movements intact. Nose and throat are somewhat dry but clear. NECK: Supple, without masses, nodes or bruits. LUNGS: The chest is clear to auscultation. No rales, no rhonchi, no wheezes are heard. No cough is noted. ABDOMEN: Obese, soft, nontender, without organomegaly, normal bowel sounds are noted in all 4 quadra nts. : Deferred. EXTREMITIES: Reveal no clubbing, cyanosis with 1+ edema. LABORATORY DATA: Reveals white count is 10,900 with hemoglobin of 6.7, hematocrit of 22.3. We did t ype her for 2 units, to give 1 unit today and 1 unit tomorrow. Platelet count is 354,000. Also reve als sodium is 138, potassium 5.3, chloride 111 with a creatinine of 2.73, which is improved over 2.8 two days ago. Sugars are still a little high. ASSESSMENT: 1. Clostridium difficile colitis, slowly improving. 2. Chronic diastolic congestive heart failure, stable. 3. Chronic kidney disease stage 4. 4. Diabetes type 2. 5. Hyperkalemia. 6. History of hypoxemia. 7. Adenocarcinoma of the breast with malignant right pleural effusion. 8. Generalized weakness. PLAN: 1. Continue by monitor the patient for her Clostridium difficile. 2. Monitor the patient for signs and symptoms of congestive heart failure. 3. Continue to monitor the patient diabetes with Accu-Cheks a.c. and at bedtime. 4. Monitor the patient's respiratory status. 5. Stress ulcer prophylaxis. 6. Deep venous thrombosis prophylaxis. 7. Decubitus precautions. 8. Physical therapy and occupational therapy. 9. Gavin's Butt Paste for some excoriation in either breast. 10. Give the patient two units of packed red blood cells, one unit today and one unit tomorrow.
[2017-07-01] MEDS: metroNIDAZOLE 500 MG TAB PO SCH ×3 (05:12→21:03)
[2017-07-01] MEDS: Ondansetron ODT 4 MG TAB PO SCH ×3 (05:12→21:03)
[2017-07-01] MEDS: Vancomycin HCl 125 MG Capsule PO SCH ×4 (05:12→23:56)
[2017-07-01] MEDS ORDERED: Sodium Chloride 0.9% 10 ML ONE (07:58)
[2017-07-01] MEDS: Levemir Flexpen 100 UNITS/ML PEN SC SCH (08:57)
[2017-07-01] MEDS: Amlodipine 5 MG TAB PO SCH (08:58)
[2017-07-01] MEDS: Ferrous Sulfate 325 MG TAB PO SCH ×2 (08:58→17:05)
[2017-07-01] MEDS: Ascorbic Acid 500 mg Chewable Tablet PO SCH ×2 (08:58→20:30)
[2017-07-01] MEDS: Carvedilol 25 MG TAB PO SCH ×2 (08:58→20:30)
[2017-07-01] MEDS: Docusate 100 MG CAP PO SCH ×2 (08:59→20:29)
[2017-07-01] MEDS: Saccharomyces boulardii 250 MG CAP PO SCH (08:59)
[2017-07-01] MEDS: Gabapentin 100 MG CAP PO SCH ×3 (08:59→20:29)
[2017-07-01] MEDS: Senokot S 8.6-50 MG TAB PO SCH ×4 (08:59→20:30)
[2017-07-01] MEDS: Famotidine 20 MG TAB PO SCH (08:59)
[2017-07-01] MEDS: Dronabinol 2.5 MG CAP PO SCH (14:13)
--- NOTE | 2017-07-01 16:30 | PRG ---
DATE OF SERVICE: 07/01/2017 DATE OF ADMISSION: 06/23/2017 HISTORY OF PRESENT ILLNESS: Ms. Camargo is a very pleasant 66-year-old black female who presented t o the [facility] with diastolic congestive heart failure. Unfortunately, she was found to have urinary tract infection with E. coli. She was also found to have a right pleural effusion which was tapped and was consistent with metastatic adenocarcinoma of the breast. Unfortunately, she had worsening re spiratory and renal status, so she was transferred to [facility] where she had a significant thoracentesis. Really improved and then she was transferred back to [facility]. When transferred back, she did have C. diff. She is presently on Lasix, Flagyl, and vancomy robbie. PHYSICAL EXAMINATION: VITAL SIGNS: Reveal blood pressure today was 112/55, pulse 71, respirations 20-22, O2 sat 94%-96% on 1.5 liters on room air, T-max is 98.3. GENERAL: This is a well-developed, well-nourished, very pleasant black female in no apparent distres s at this time. HEENT: Reveals normocephalic, nontraumatic cranium. Pupils are equally round and reactive. Extraoc ular movements are intact. Nose and throat are dry, but clear. NECK: Supple, without mass, nodes or bruits. CHEST: Clear to auscultation. Patient has no cough today. She has no rales or rhonchi, no wheezes. Breath sounds are clear. HEART: Reveals a regular rate and rhythm without murmurs, gallops or rubs. ABDOMEN: Obese, soft, nontender, without organomegaly. Normal bowel sounds are noted. No rebound o r guarding is noted. GENITOURINARY: Deferred. EXTREMITIES: Reveal no clubbing or cyanosis with 1+ edema. ASSESSMENT: 1. Chronic diastolic congestive heart failure. 2. Chronic kidney disease stage 3. 3. Diabetes type 2. 4. Clostridium difficile. 5. History of hypoxemia. 6. Hyperkalemia. 7. Adenocarcinoma of the breast with malignant right pleural effusion. 8. Generalized weakness. PLAN: 1. Continue to monitor the patient for signs and symptoms of congestive heart failure. 2. Monitor the patient's renal status. 3. Follow the patient's diabetes with Accu-Cheks a.c. and at bedtime. 4. Monitor the patient's respiratory status. 5. Stress ulcer prophylaxis. 6. DVT prophylaxis. 7. Decubitus precautions. 8. Physical therapy and occupational therapy. 9. Gavin's Butt Paste for excoriations under each breast.
[2017-07-01] MEDS ORDERED: Levemir Flexpen 100 UNITS/ML PEN SC SCH (21:00)
[2017-07-02] MEDS: Ondansetron ODT 4 MG TAB PO SCH ×3 (05:15→21:08)
[2017-07-02] MEDS: Vancomycin HCl 125 MG Capsule PO SCH ×3 (05:15→19:00)
[2017-07-02] MEDS: metroNIDAZOLE 500 MG TAB PO SCH ×3 (05:15→21:11)
[2017-07-02 05:39] LABS: #Basophils 0.1 thou/uL (0.0-0.2); #Eosinphils 0.3 thou/uL (0.0-0.7); #Lymphocytes 1.3 thou/uL (1.20-3.40); #Monocytes 0.7 thou/uL (0.11-0.59); #Neutrophils 6.9 thou/uL (1.40-6.50); %Basophils 1.3 % (0.0-1.0); %Eosinophils 3.1 % (0.0-10.0); %Lymphocytes 13.6 % (21.0-51.0); %Monocytes 7.8 % (0.0-10.0); %Neutrophils 74.2 % (42.0-75.0); Hemoglobin 9.1 g/dL (12.0-16.0); Mean Corpuscular HGB CONC 30.3 g/dL (32.0-36.0); Mean Corpuscular Hemoglobin 26.3 pg (27.0-31.0); Mean Corpuscular Volume 86.9 fl (81.0-99.0); Platelet Count 368 thou/uL (130-400); RBC Distribution Width 17.3 % (11.5-14.5); Red Blood Cell (RBC) Count 3.44 mill/uL (4.20-5.40); White Blood Cell (WBC) Count 9.2 thou/uL (4.8-10.8)
[2017-07-02 05:55] LABS: ALT (SGPT) 8 U/L (8-55); AST (SGOT) 12 U/L (5-34); Albumin 2.8 g/dL (3.4-4.8); Alkaline Phosphatase 130 U/L (40-150); Anion Gap 15 mmol/L (10-20); BUN (Urea Nitrogen) 99 mg/dL (9.8-20.1); Bilirubin, Total 0.3 mg/dL (0.2-1.2); Calc. Creatinine Clearance 37 mL/min (70-130); Calcium 9.4 mg/dL (7.8-10.44); Carbon Dioxide 19 mmol/L (23-31); Chloride 110 mmol/L (98-107); Estimated GFR-MDRD 17; Globulin 5.2 g/dL (2.4-3.5); Glucose 182 mg/dL (80-115); Potassium 5.7 mmol/L (3.5-5.1); Sodium 138 mmol/L (136-145)
[2017-07-02] MEDS ORDERED: Levemir Flexpen 100 UNITS/ML PEN SC SCH (07:30)
[2017-07-02] MEDS: Saccharomyces boulardii 250 MG CAP PO SCH (08:28)
[2017-07-02] MEDS: Amlodipine 5 MG TAB PO SCH (08:28)
[2017-07-02] MEDS: Ferrous Sulfate 325 MG TAB PO SCH ×2 (08:28→19:01)
[2017-07-02] MEDS: Carvedilol 25 MG TAB PO SCH ×2 (08:32→21:11)
[2017-07-02] MEDS: Docusate 100 MG CAP PO SCH ×2 (08:32→21:11)
[2017-07-02] MEDS: Gabapentin 100 MG CAP PO SCH ×3 (08:32→21:11)
[2017-07-02] MEDS: Ascorbic Acid 500 mg Chewable Tablet PO SCH ×2 (08:32→21:11)
[2017-07-02] MEDS: Senokot S 8.6-50 MG TAB PO SCH ×4 (08:32→21:11)
[2017-07-02] MEDS: Famotidine 20 MG TAB PO SCH (08:32)
[2017-07-02] MEDS: Dronabinol 2.5 MG CAP PO SCH (14:57)
[2017-07-02] MEDS: Acetaminophen 325 MG TAB PO PRN (19:01)
[2017-07-02] MEDS: Levemir Flexpen 100 UNITS/ML PEN SC SCH (21:10)
[2017-07-02] MEDS: Cyclobenzaprine 10 MG TAB PO PRN (21:11)
--- NOTE | 2017-07-02 21:49 | RAD ---
AP CHEST: Indication: History of pleural effusion. FINDINGS: There is cardiomegaly with pulmonary vascular congestion with a tiny left and small to moderate right pleural effusion. No pneumothorax is evident. IMPRESSION: Findings suggestive of CHF. POS: [facility]
--- NOTE | 2017-07-02 22:31 | PRG ---
DATE OF SERVICE: 07/02/2017 DATE OF DISCHARGE: 06/23/2017 HISTORY OF PRESENT ILLNESS: Ms. Camargo is a very pleasant but unfortunate 66-year-old black female that went to the hospital initially with diastolic congestive heart failure. She was found to have urinary tract infection also. Patient had decreased breath sounds in the right and right pleural eff usion was tapped and sent off. It returned with metastatic adenocarcinoma of the breast cells. She eventually was transferred back to [facility] and had C. diff. We are diuresing her with some Flagyl and vancomycin. Her stools are pretty much back to normal. Patient's daughter, son-in-law are in the room and wanted to why she is so tired. I told her basical ly is because she has sugars that are not under control, even though I bumped her Levemir twice. Her renal status is not great. She is still anemic and required 2 units of packed red blood cells, 2 da ys ago and most likely has a recurrent pleural effusion, for which we are getting a chest x-ray on ther this afternoon or tomorrow morning. PHYSICAL EXAMINATION: VITAL SIGNS: Reveal blood pressure is 121/59, pulse 76-81, respirations 18-20, O2 sat 96%-99% on 1.5 liters, T-max is 99.6. GENERAL: This is a well-developed, well-nourished, slightly obese black female in no apparent distre ss at this time. HEENT: Reveals normocephalic, nontraumatic cranium. Pupils equally round and reactive. Extraocular movements intact. Nose and throat are slightly dry. NECK: Supple without mass, nodes, or bruits. CHEST: Clear to auscultation. No rales, rhonchi, or wheezes are heard. CARDIOVASCULAR: Reveals a regular rate and rhythm without murmurs, gallops, or rubs. ABDOMEN: Obese, soft, nontender without organomegaly. Normal bowel sounds are noted. No rebound or guarding is noted. : Deferred. EXTREMITIES: Reveal no clubbing, cyanosis, but 1+ edema. IMPRESSION: 1. Chronic diastolic congestive heart failure. 2. Most likely recurrent pleural effusion, we will get a chest x-ray in the morning. 3. Chronic kidney disease, stage 3. 4. Diabetes type 2, still out of control even though I bumped her Levemir twice. 5. Clostridium difficile. 6. History of hypoxemia. 7. Hyperkalemia. 8. Adenocarcinoma of the breast with malignant right pleural effusion. 9. Generalized weakness. PLAN: 1. Continue to monitor the patient for signs and symptoms of congestive heart failure. 2. Chest x-ray tomorrow morning to see if the patient has recurrent pleural effusion. 3. Follow the patient's diabetes with Accu-Cheks a.c. and at bedtime. 4. Monitor the patient's respiratory status. 5. Monitor the patient's renal status. 6. Stress ulcer prophylaxis. 7. DVT prophylaxis. 8. Decubitus precautions. 9. PT and OT. 10. Gavin's Butt Paste for excoriations in either breast.
[2017-07-03] MEDS: Vancomycin HCl 125 MG Capsule PO SCH ×4 (02:05→17:22)
[2017-07-03] MEDS: metroNIDAZOLE 500 MG TAB PO SCH ×3 (06:06→21:16)
[2017-07-03] MEDS: Ondansetron ODT 4 MG TAB PO SCH ×3 (06:06→21:16)
[2017-07-03] MEDS ORDERED: Levemir Flexpen 100 UNITS/ML PEN SC SCH (07:30)
[2017-07-03] MEDS: Saccharomyces boulardii 250 MG CAP PO SCH (08:24)
[2017-07-03] MEDS: Amlodipine 5 MG TAB PO SCH (08:24)
[2017-07-03] MEDS: Gabapentin 100 MG CAP PO SCH ×3 (08:24→21:16)
[2017-07-03] MEDS: Ferrous Sulfate 325 MG TAB PO SCH ×2 (08:24→17:22)
[2017-07-03] MEDS: Carvedilol 25 MG TAB PO SCH ×2 (08:24→21:16)
[2017-07-03] MEDS: Docusate 100 MG CAP PO SCH ×2 (08:25→21:16)
[2017-07-03] MEDS: Ascorbic Acid 500 mg Chewable Tablet PO SCH ×2 (08:25→21:16)
[2017-07-03] MEDS: Famotidine 20 MG TAB PO SCH (08:25)
[2017-07-03] MEDS: Senokot S 8.6-50 MG TAB PO SCH ×4 (08:25→21:16)
[2017-07-03] MEDS: Dronabinol 2.5 MG CAP PO SCH (14:43)
[2017-07-03] MEDS: Levemir Flexpen 100 UNITS/ML PEN SC SCH (21:14)
[2017-07-03] MEDS: Acetaminophen 325 MG TAB PO PRN (21:15)
[2017-07-04] MEDS: Vancomycin HCl 125 MG Capsule PO SCH ×4 (00:07→17:21)
[2017-07-04] MEDS: Ondansetron ODT 4 MG TAB PO SCH ×3 (06:16→21:26)
[2017-07-04] MEDS: metroNIDAZOLE 500 MG TAB PO SCH ×3 (06:16→21:27)
[2017-07-04] MEDS ORDERED: Furosemide 40 MG TAB PO SCH (07:45)
--- NOTE | 2017-07-04 07:58 | PRG ---
DATE OF SERVICE: 07/03/2017 SUBJECTIVE: The patient is awake, visiting with daughter, but appears to be slightly confused, weake fady and somewhat short of breath. OBJECTIVE: VITAL SIGNS: Shows her blood pressure is 143/65, respirations 24, O2 sats 96% on room air, pulse 86, temperature 99.8. LABORATORY: Laboratory showed yesterday, white count 9200, hematocrit 29, hemoglobin 9. Accu-Cheks have been previously uncontrolled at 184-285. Sodium yesterday was 138, potassium 5.7, chloride 110, bicarbonate 19, BUN 99, creatinine 2.77, albumin 2.8. LUNGS: Lungs show decreased breath sounds in the bases. Chest x-ray showed no evidence of recurrent malignant pleural effusion and cardiomegaly, pulmonary vascular congestion. CARDIAC: Cardiac examination displayed regular rhythm, no gallops or murmurs. ABDOMEN: Soft, nontender. SKIN AND EXTREMITIES: Showed 1+ edema. ASSESSMENT: 1. Chronic kidney disease stage 3 with exacerbation to stage 4. 2. Diastolic heart failure. 3. Malignant pleural effusion secondary to carcinoma of the breast, no evidence of recurrence on martinez oxifen. 4. Altered mental status and confusion. No focal findings. PLAN: CT scan of the brain in the a.m. Restart furosemide in the a.m. Repeat basic metabolic profi le in 2 days. Increase Levemir to 40 units in the a.m. and continue Levemir 40 units at night.
[2017-07-04] MEDS: Ferrous Sulfate 325 MG TAB PO SCH ×2 (08:25→17:21)
[2017-07-04] MEDS: Levemir Flexpen 100 UNITS/ML PEN SC SCH ×2 (09:23→21:28)
--- NOTE | 2017-07-04 09:23 | PRG ---
DATE OF SERVICE: 07/03/2017 SUBJECTIVE: The patient feels well with no complaints of shortness of breath at rest, but still very weak, and has shortness of breath on exercise. Denying any chest pain, palpitations, sweats, chills or fever. OBJECTIVE: VITAL SIGNS: Shows blood pressure is 151/76, pulse 81, O2 sats 94%. LUNGS: Clear. CARDIAC: Regular rhythm, no gallops or murmurs. ABDOMEN: Soft and nontender. IMAGING STUDIES: Chest x-ray showed mild pulmonary congestion with no significant pleural effusion. ASSESSMENT: 1. Unfortunate 66-year-old black female with a long history of diabetes with poor control, which has remained uncontrolled despite increase in Levemir to 30 units in the morning, 40 units in the evenin g by Dr. Reilly. 2. Recurrent metastatic breast cancer despite long treatment with Anastrozole, and now on Tamoxifen after removal of malignant effusion with no evidence of recurrence. 3. Diastolic heart failure with mild decompensation but with well controlled blood pressure. 4. Stable chronic kidney disease, stage 4, creatinine of 2.77 yesterday. BUN 99. Sodium 138, potas sium 5.7, chloride 110 and bicarb 19. 5. Severe deconditioning cooperating with therapy. 6. New finding of Clostridium difficile, no evidence for recurrence on Flagyl, vancomycin oral. PLAN: 1. Increase Levemir to 40 units twice daily subcu. 2. Continue vancomycin, Flagyl for Clostridium difficile. 3. Continue PT and OT. 4. Continue carvedilol for diastolic heart failure. 5. Continue to monitor chronic kidney disease stage 4 closely.
[2017-07-04] MEDS: Ascorbic Acid 500 mg Chewable Tablet PO SCH ×2 (09:24→21:27)
[2017-07-04] MEDS: Famotidine 20 MG TAB PO SCH (09:24)
[2017-07-04] MEDS: Saccharomyces boulardii 250 MG CAP PO SCH (09:24)
[2017-07-04] MEDS: Gabapentin 100 MG CAP PO SCH ×3 (09:24→21:27)
[2017-07-04] MEDS: Docusate 100 MG CAP PO SCH ×2 (09:25→21:27)
[2017-07-04] MEDS: Carvedilol 25 MG TAB PO SCH ×2 (09:25→21:27)
[2017-07-04] MEDS: Amlodipine 5 MG TAB PO SCH (09:25)
[2017-07-04] MEDS: Senokot S 8.6-50 MG TAB PO SCH ×4 (09:25→21:27)
--- NOTE | 2017-07-04 10:20 | CT ---
NONCONTRAST HEAD CT: Date: 07/04/17 HISTORY: Confusion. Breast cancer. COMPARISON: None. TECHNIQUE: A noncontrast head CT is performed from the skull base to the skull vertex. FINDINGS: No parenchymal hemorrhage or extra-axial hematoma. No midline shift. Basilar cisterns are patent. Bra in volume is age-appropriate. Cortical corado-white matter differentiation is preserved. Ventricles and sulci are patent and symmetric. Adequate aeration of the sinuses and mastoid air cells. Cavernous ca rotid atherosclerosis. Intact calvarium. IMPRESSION: No acute intracranial process. No CT evidence of intracranial metastasis. If there is concern, consid er MRI. POS: [facility]
[2017-07-04] MEDS ORDERED: Sodium Chloride 0.9% 10 ML ONE (12:14)
[2017-07-04] MEDS: Dronabinol 2.5 MG CAP PO SCH (13:47)
--- NOTE | 2017-07-04 20:20 | PRG ---
DATE OF SERVICE: 07/04/2017 SUBJECTIVE: Patient is sleepy, but awakens easily. Denies any complaints of shortness of breath, ch est pain, confusion. OBJECTIVE: Shows ammonia level is normal at 22. Accu-Cheks ranged from 184-214. VITAL SIGNS: Show blood pressure 150/84, pulse is 80, O2 sat 96% on 1 liter. LUNGS: Show decreased breath sounds in the bases. CARDIAC EXAMINATION: Shows regular rhythm. ABDOMEN: Soft and nontender. IMAGING: CT of the brain done to evaluate lethargy shows no acute changes. ASSESSMENT: 1. Diastolic heart failure slightly improved with current Lasix with stable renal function to be alondra luated tomorrow. 2. No evidence of acute intracranial pathology. 3. Malignant pleural effusion with no evidence for recurrence. 4. Chronic kidney disease, stage 3 with repeat evaluation tomorrow. 5. Insulin-dependent diabetes mellitus was slightly improved, controlled, and increased Levemir and we will continue to monitor.
[2017-07-05] MEDS: Vancomycin HCl 125 MG Capsule PO SCH ×5 (00:29→22:54)
[2017-07-05] MEDS: Ondansetron ODT 4 MG TAB PO SCH ×3 (05:39→20:59)
[2017-07-05] MEDS: metroNIDAZOLE 500 MG TAB PO SCH ×3 (05:40→21:00)
[2017-07-05 05:41] LABS: Anion Gap 13 mmol/L (10-20); BUN (Urea Nitrogen) 93 mg/dL (9.8-20.1); Calc. Creatinine Clearance 54 mL/min (70-130); Calcium 9.1 mg/dL (7.8-10.44); Carbon Dioxide 21 mmol/L (23-31); Chloride 116 mmol/L (98-107); Estimated GFR-MDRD 26; Glucose 148 mg/dL (80-115); Potassium 5.6 mmol/L (3.5-5.1); Sodium 144 mmol/L (136-145)
[2017-07-05] MEDS: Levemir Flexpen 100 UNITS/ML PEN SC SCH ×2 (08:13→21:09)
[2017-07-05] MEDS: Ascorbic Acid 500 mg Chewable Tablet PO SCH ×2 (08:15→21:00)
[2017-07-05] MEDS: Amlodipine 5 MG TAB PO SCH (08:15)
[2017-07-05] MEDS: Carvedilol 25 MG TAB PO SCH ×2 (08:15→21:00)
[2017-07-05] MEDS: Ferrous Sulfate 325 MG TAB PO SCH ×2 (08:15→17:08)
[2017-07-05] MEDS: Docusate 100 MG CAP PO SCH ×2 (08:15→21:00)
[2017-07-05] MEDS: Saccharomyces boulardii 250 MG CAP PO SCH (08:15)
[2017-07-05] MEDS: Famotidine 20 MG TAB PO SCH (08:16)
[2017-07-05] MEDS: Furosemide 40 MG TAB PO SCH (08:16)
[2017-07-05] MEDS: Senokot S 8.6-50 MG TAB PO SCH ×4 (08:17→21:00)
[2017-07-05] MEDS: Dronabinol 2.5 MG CAP PO SCH (13:56)
--- NOTE | 2017-07-05 22:23 | PRG ---
DATE OF SERVICE: 07/05/2017 SUBJECTIVE: The patient much more awake and alert, no shortness of breath. Ready to do more therapy . No complaints of chest pain. OBJECTIVE: VITAL SIGNS: Blood pressure is 142/63, temperature 98, pulse 80, respirations 18, O2 sats 95% on 2 l iters. SKIN AND EXTREMITIES: Showed decreased edema. LABORATORY DATA: Accu-Cheks improved to 149-237. Sodium is 144, potassium 5.6, chloride 116, bicarb gregg 21, BUN stable at 93. Creatinine greatly improved at 192. ASSESSMENT: Resolving, improving diastolic heart failure, stable malignant pleural effusion on tamox ifen with no evidence of recurrence. Improved, diabetes control, but still not to goal. Improved, c hronic kidney disease, on diuresis and we will continue to monitor. PLAN: Continue furosemide 40 daily. Repeat basic metabolic profile in 2 days. Continue insulin as ordered and monitor Accu-Cheks and titrate and control.
[2017-07-05] MEDS ORDERED: Gabapentin 100 MG CAP PO SCH (22:45)
[2017-07-06] MEDS: metroNIDAZOLE 500 MG TAB PO SCH ×3 (05:37→20:35)
[2017-07-06] MEDS: Ondansetron ODT 4 MG TAB PO SCH ×3 (05:37→20:34)
[2017-07-06] MEDS: Vancomycin HCl 125 MG Capsule PO SCH ×3 (05:38→17:05)
[2017-07-06] MEDS: Ferrous Sulfate 325 MG TAB PO SCH ×2 (07:44→17:05)
[2017-07-06] MEDS: Levemir Flexpen 100 UNITS/ML PEN SC SCH ×2 (07:45→20:35)
[2017-07-06] MEDS: Amlodipine 5 MG TAB PO SCH (09:05)
[2017-07-06] MEDS: Saccharomyces boulardii 250 MG CAP PO SCH (09:05)
[2017-07-06] MEDS: Carvedilol 25 MG TAB PO SCH ×2 (09:06→20:34)
[2017-07-06] MEDS: Famotidine 20 MG TAB PO SCH (09:06)
[2017-07-06] MEDS: Ascorbic Acid 500 mg Chewable Tablet PO SCH ×2 (09:07→20:35)
[2017-07-06] MEDS: Furosemide 40 MG TAB PO SCH (09:07)
[2017-07-06] MEDS: Senokot S 8.6-50 MG TAB PO SCH ×4 (09:09→20:35)
[2017-07-06] MEDS: Docusate 100 MG CAP PO SCH ×2 (09:09→20:35)
[2017-07-06] MEDS: Dronabinol 2.5 MG CAP PO SCH (13:52)
[2017-07-06] MEDS: Acetaminophen 325 MG TAB PO PRN (17:04)
[2017-07-06] MEDS: Cyclobenzaprine 10 MG TAB PO PRN (20:34)
[2017-07-06] MEDS: Gabapentin 100 MG CAP PO SCH (20:35)
[2017-07-06] MEDS ORDERED: Gabapentin 100 MG CAP PO SCH (21:00)
[2017-07-07] MEDS: Vancomycin HCl 125 MG Capsule PO SCH ×4 (00:38→17:26)
[2017-07-07 05:49] LABS: Anion Gap 13 mmol/L (10-20); BUN (Urea Nitrogen) 72 mg/dL (9.8-20.1); Calc. Creatinine Clearance 64 mL/min (70-130); Calcium 9.2 mg/dL (7.8-10.44); Carbon Dioxide 23 mmol/L (23-31); Chloride 115 mmol/L (98-107); Estimated GFR-MDRD 32; Glucose 85 mg/dL (80-115); Potassium 5.1 mmol/L (3.5-5.1); Sodium 146 mmol/L (136-145)
[2017-07-07] MEDS: metroNIDAZOLE 500 MG TAB PO SCH ×3 (06:09→20:58)
[2017-07-07] MEDS: Ondansetron ODT 4 MG TAB PO SCH ×3 (06:09→20:57)
[2017-07-07] MEDS: Levemir Flexpen 100 UNITS/ML PEN SC SCH ×2 (07:30→21:03)
[2017-07-07] MEDS: Ascorbic Acid 500 mg Chewable Tablet PO SCH ×2 (08:55→20:58)
[2017-07-07] MEDS: Carvedilol 25 MG TAB PO SCH ×2 (08:56→20:59)
[2017-07-07] MEDS: Famotidine 20 MG TAB PO SCH (08:56)
[2017-07-07] MEDS: Docusate 100 MG CAP PO SCH ×2 (08:56→20:58)
[2017-07-07] MEDS: Ferrous Sulfate 325 MG TAB PO SCH ×2 (08:57→17:26)
[2017-07-07] MEDS: Saccharomyces boulardii 250 MG CAP PO SCH (08:57)
[2017-07-07] MEDS: Gabapentin 100 MG CAP PO SCH ×2 (08:57→20:59)
[2017-07-07] MEDS: Amlodipine 5 MG TAB PO SCH (08:57)
[2017-07-07] MEDS: Senokot S 8.6-50 MG TAB PO SCH ×4 (09:46→20:58)
[2017-07-07] MEDS: Acetaminophen 325 MG TAB PO PRN ×2 (11:46→17:26)
[2017-07-07] MEDS: Dronabinol 2.5 MG CAP PO SCH (14:41)
[2017-07-07] MEDS: Cyclobenzaprine 10 MG TAB PO PRN (21:11)
--- NOTE | 2017-07-07 22:17 | PRG ---
DATE OF SERVICE: 07/07/2017 SUBJECTIVE: The patient feels much better on increased gabapentin 100 twice daily with no lethargy, but is complaining of increasing pain in her knees and is requesting steroid injections as she has martin d relief in the past. She is denying any shortness of breath, chest pain, nausea, vomiting, and is t olerating furosemide well. LABORATORY DATA: Sodium is 146, potassium 5.1, chloride 115, bicarbonate 23, BUN 72, creatinine 1.62 . Accu-Cheks range 87 to 175. OBJECTIVE: LUNGS: Clear. CARDIAC EXAMINATION: Shows regular rhythm. SKIN AND EXTREMITIES: Show only trace edema. Knees show some stiffness with minimal crepitance. ASSESSMENT: 1. Diastolic heart failure, appears to be stabilizing on furosemide 40 daily. 2. Acute on chronic renal failure, improving with diuresis is most likely due to diastolic heart idalia lure. 3. Malignant pleural effusion on tamoxifen with no evidence for recurrence. 4. Diabetes type 2 with controlled to goal. 5. Degenerative joint disease of both knees. PLAN: Steroid injections in both knees tomorrow. Continue gabapentin 100 twice daily. Continue fur osemide 40 daily. Continue Levemir 40 units in the a.m. and 40 units at night for diabetic control.
--- NOTE | 2017-07-07 22:39 | PRG ---
DATE OF SERVICE: 07/06/2017 SUBJECTIVE: The patient is awake and alert, but is complaining of increased pain and requiring gabap entin in the morning. Discuss lethargy versus pain relief with gabapentin and decided to increase to twice daily and to monitor response. OBJECTIVE: VITAL SIGNS: Shows her blood pressure is 131/56, temperature 98, pulse 84, respirations 18, O2 sats 96% on 2 liters. LUNGS: Clear. CARDIOVASCULAR: Shows regular rhythm. ABDOMEN: Soft and nontender. SKIN AND EXTREMITIES: Showed trace edema. LABORATORY DATA: Shows Accu-Cheks 182-201. ASSESSMENT: 1. Diastolic heart failure, appears to be stable. 2. Severe degenerative joint disease of both knees, significant pain. 3. Metastatic cancer of the breast with right pleural effusion, no evidence for recurrence. 4. Chronic kidney disease, stage 4 with acute exacerbation, improving with diuresis with furosemide. PLAN: 1. Continue Lasix 40 daily. Repeat basic metabolic profile in the a.m. 2. Metastatic breast cancer on tamoxifen, no evidence for recurrence. 3. Degenerative joint disease of both knees, severe, limiting exercise capability. 4. Severe physical deconditioning, slowly improving. 5. Peripheral neuropathy and chronic pain, uncontrolled on gabapentin at night and we will increase to twice daily.
[2017-07-08] MEDS: Vancomycin HCl 125 MG Capsule PO SCH ×4 (00:18→18:06)
[2017-07-08] MEDS: Ondansetron ODT 4 MG TAB PO SCH ×3 (05:27→20:58)
[2017-07-08] MEDS: metroNIDAZOLE 500 MG TAB PO SCH ×3 (05:27→20:58)
[2017-07-08] MEDS: Acetaminophen 325 MG TAB PO PRN ×3 (05:45→20:58)
[2017-07-08] MEDS: Levemir Flexpen 100 UNITS/ML PEN SC SCH ×2 (07:54→21:02)
[2017-07-08] MEDS: Docusate 100 MG CAP PO SCH ×2 (08:53→20:59)
[2017-07-08] MEDS: Senokot S 8.6-50 MG TAB PO SCH ×4 (08:53→20:58)
[2017-07-08] MEDS: Saccharomyces boulardii 250 MG CAP PO SCH (08:53)
[2017-07-08] MEDS: Gabapentin 100 MG CAP PO SCH ×2 (08:53→20:58)
[2017-07-08] MEDS: Amlodipine 5 MG TAB PO SCH (08:53)
[2017-07-08] MEDS: Ferrous Sulfate 325 MG TAB PO SCH ×2 (08:53→17:00)
[2017-07-08] MEDS: Famotidine 20 MG TAB PO SCH (08:53)
[2017-07-08] MEDS: Ascorbic Acid 500 mg Chewable Tablet PO SCH ×2 (08:53→20:58)
[2017-07-08] MEDS: Carvedilol 25 MG TAB PO SCH ×2 (08:54→20:58)
[2017-07-08] MEDS: Cyclobenzaprine 10 MG TAB PO PRN ×2 (12:34→20:58)
[2017-07-08] MEDS: Dronabinol 2.5 MG CAP PO SCH (17:00)
[2017-07-08] MEDS ORDERED: Lidocaine 1% 20 ML MDV ONE (18:56)
[2017-07-09] MEDS: Vancomycin HCl 125 MG Capsule PO SCH ×4 (01:36→18:05)
[2017-07-09] MEDS: Ondansetron ODT 4 MG TAB PO SCH ×3 (05:45→21:12)
[2017-07-09] MEDS: metroNIDAZOLE 500 MG TAB PO SCH ×3 (05:46→21:12)
[2017-07-09] MEDS: Acetaminophen 325 MG TAB PO PRN ×3 (07:52→21:12)
[2017-07-09] MEDS: Saccharomyces boulardii 250 MG CAP PO SCH (07:52)
[2017-07-09] MEDS: Ascorbic Acid 500 mg Chewable Tablet PO SCH ×2 (07:52→21:12)
[2017-07-09] MEDS: Famotidine 20 MG TAB PO SCH (07:53)
[2017-07-09] MEDS: Gabapentin 100 MG CAP PO SCH ×2 (07:54→21:13)
[2017-07-09] MEDS: Furosemide 40 MG TAB PO SCH (07:54)
[2017-07-09] MEDS: Carvedilol 25 MG TAB PO SCH ×2 (07:54→21:12)
[2017-07-09] MEDS: Docusate 100 MG CAP PO SCH ×2 (07:54→21:12)
[2017-07-09] MEDS: Ferrous Sulfate 325 MG TAB PO SCH ×2 (07:54→18:05)
[2017-07-09] MEDS: Senokot S 8.6-50 MG TAB PO SCH ×4 (07:55→21:22)
[2017-07-09] MEDS: Levemir Flexpen 100 UNITS/ML PEN SC SCH ×2 (07:58→21:13)
[2017-07-09] MEDS: Amlodipine 5 MG TAB PO SCH (07:59)
[2017-07-09] MEDS ORDERED: Lidocaine 1% PF 5 ML VIAL FS SCH (08:00)
[2017-07-09] MEDS ORDERED: methylPREDNISolone Acetate 40 mg/ml Vial I-ARTICULR SCH ×4 (08:00→19:35)
--- NOTE | 2017-07-09 11:16 | PRG ---
DATE OF SERVICE: 07/08/2017 SUBJECTIVE: The patient feels well. No dyspnea at rest, but still has dyspnea on exertion, but is c omplaining mainly of pain in her knees limiting her exercise capability. She states she has had zaire re arthritis in both knees for years, causing her to require occasional steroid injection, but the la st injection greater than 6 months ago and is requesting another one. OBJECTIVE: VITAL SIGNS: Shows her blood pressure is 107/23, respirations 22, O2 sats 95%, pulse 78, temperature 98.3. LUNGS: Showed good breath sounds, no rales or rhonchi. CARDIAC: Displays regular rhythm. There is an S4, no other gallops or murmurs. ABDOMEN: Obese and nontender with no masses or organomegaly. EXTREMITIES: Display tenderness on flexion, extension of both knees with bilateral crepitance, but n o laxity, no erythema or warmth. NEUROLOGICAL: Shows no focal findings. ASSESSMENT: 1. Diastolic heart failure, improving and stabilizing on furosemide 40 daily, and we will restart th at as it was stopped yesterday: 2. Acute on chronic renal failure, improved on furosemide with creatinine decreasing from 2.77-1.92- 1.62 with improvement of heart failure. 3. Type 2 diabetes with adequate control with Accu-Cheks ranging from 87-175. 4. Severe degenerative joint disease of both knees. PLAN: 1. Under sterile conditions and with local anesthesia, we will give 40 mg of Depo-Medrol and 3 mL of 2% Xylocaine in the anteromedial approach to both knees with no complications with good relief of sy mptoms initially. 2. Continue furosemide 40 daily. 3. Continue PT, OT. 4. Continue tamoxifen for control of recurrent breast cancer with malignant pleural effusion.
--- NOTE | 2017-07-09 12:56 | PRG ---
DATE OF SERVICE: 07/09/2017 SUBJECTIVE: The patient feels well, sitting up in the bed with only complaint of persistent pain in her knees despite steroid injections yesterday. Denies any shortness of breath at rest, but has not been doing therapy this weekend, but is ready for tomorrow for it. OBJECTIVE: VITAL SIGNS: Temperature is 98, pulse 79, respirations 21, O2 sats 95%, blood pressure 127/59. LUNGS: Show decreased breath sounds in the bases, but no rales, rhonchi or wheezes. CARDIAC: Examination shows regular rhythm. No gallops or murmurs. ABDOMEN: Obese and nontender. SKIN AND EXTREMITIES: Show 1+ edema, no clubbing, cyanosis. Both knees are tender with no crepitanc e and stiffness. NEUROLOGICAL: Shows no focal findings. LABORATORY DATA: Accu-Cheks stable ranges from 112-218. ASSESSMENT: 1. Stable diastolic heart failure on furosemide 40 daily. 2. Acute on chronic renal failure, improving with diuresis and will check BMP in the a.m. 3. Malignant pleural effusion, stable on tamoxifen and will check chest x-ray tomorrow. 4. Severe degenerative joint disease, both knees, minimal improvement after steroid injection. We w ill monitor closely. 5. Diabetes type 2 with fair control. PLAN: 1. Continue gabapentin 100 mg twice daily. 2. Continue furosemide daily. 3. Check base met profile, BNP. Chest x-ray in the a.m. 4. Continue Levemir 40 units twice daily and monitor Accu-Cheks and titrate and control with sliding scale if necessary.
[2017-07-09] MEDS: Dronabinol 2.5 MG CAP PO SCH (14:18)
--- NOTE | 2017-07-09 17:39 | RAD ---
CHEST ONE VIEW: HISTORY: CHF. Dyspnea. COMPARISON: 07/02/2017 FINDINGS: The cardiac silhouette is magnified, enlarged, and now more obscured by increasing pleural fluid and basilar infiltrates. The pulmonary vasculature is more engorged. The mediastinum is midline. No ev idence of pneumothorax. IMPRESSION: Radiographic worsening of congestive heart failure. POS: [facility]
[2017-07-10] MEDS: Vancomycin HCl 125 MG Capsule PO SCH ×2 (00:52→05:23)
[2017-07-10] MEDS: metroNIDAZOLE 500 MG TAB PO SCH (05:23)
[2017-07-10] MEDS: Ondansetron ODT 4 MG TAB PO SCH ×3 (05:23→21:01)
[2017-07-10 06:03] LABS: Anion Gap 11 mmol/L (10-20); BUN (Urea Nitrogen) 63 mg/dL (9.8-20.1); Calc. Creatinine Clearance 57 mL/min (70-130); Calcium 8.8 mg/dL (7.8-10.44); Carbon Dioxide 23 mmol/L (23-31); Chloride 114 mmol/L (98-107); Estimated GFR-MDRD 28; Glucose 110 mg/dL (80-115); Potassium 5.7 mmol/L (3.5-5.1); Sodium 142 mmol/L (136-145)
[2017-07-10] MEDS: Levemir Flexpen 100 UNITS/ML PEN SC SCH ×2 (07:40→19:50)
[2017-07-10] MEDS: Ferrous Sulfate 325 MG TAB PO SCH ×2 (07:40→18:06)
[2017-07-10] MEDS: Furosemide 40 MG TAB PO SCH (08:41)
[2017-07-10] MEDS: Saccharomyces boulardii 250 MG CAP PO SCH (08:41)
[2017-07-10] MEDS: Carvedilol 25 MG TAB PO SCH ×2 (08:42→21:03)
[2017-07-10] MEDS: Gabapentin 100 MG CAP PO SCH ×2 (08:42→21:03)
[2017-07-10] MEDS: Amlodipine 5 MG TAB PO SCH (08:42)
[2017-07-10] MEDS: Famotidine 20 MG TAB PO SCH (08:42)
[2017-07-10] MEDS: Ascorbic Acid 500 mg Chewable Tablet PO SCH ×2 (08:42→21:03)
[2017-07-10] MEDS: Senokot S 8.6-50 MG TAB PO SCH ×4 (08:44→21:02)
[2017-07-10] MEDS: Docusate 100 MG CAP PO SCH ×2 (08:45→21:03)
[2017-07-10] MEDS: Acetaminophen 325 MG TAB PO PRN ×2 (09:43→21:02)
[2017-07-10] MEDS: Dronabinol 2.5 MG CAP PO SCH (13:54)
--- NOTE | 2017-07-10 17:44 | PRG ---
DATE OF SERVICE: 07/10/2017 SUBJECTIVE: The patient feels well in rest, decreasing pain in the knees, but still short of breath and having pain in her hips and unsure whether she can do therapy. OBJECTIVE: VITAL SIGNS: Shows O2 sat is 94% on 2 liters, respirations 20, pulse 78, afebrile. LUNGS: Show decreased breath sounds in bases. LABORATORY DATA: Accu-Cheks 95-133. BNP is elevated to 709. Sodium 142, potassium 5.7, chloride 11 4, bicarbonate 23, BUN 63, creatinine increased to 1.82. IMAGING: Chest x-ray done yesterday showed worsening of congestive heart failure. ASSESSMENT: 1. Diastolic heart failure with increased congestion, off of furosemide. 2. Chronic kidney disease, stage 4 with worsening, off of furosemide. 3. Severe degenerative joint disease, both knees and hips with some minimal improvement with steroid injections. 4. Cancer of the breast with malignant pleural effusion, no evidence for recurrence, on tamoxifen. PLAN: Continue Lasix 40 daily. Continue PT, OT. Repeat base met profile and BNP in 2 days. Repeat chest x-ray in 2 days.
[2017-07-11] MEDS: Ondansetron ODT 4 MG TAB PO SCH ×3 (05:53→20:31)
[2017-07-11] MEDS: Levemir Flexpen 100 UNITS/ML PEN SC SCH ×2 (07:34→20:33)
[2017-07-11] MEDS: Ferrous Sulfate 325 MG TAB PO SCH ×2 (07:34→17:04)
[2017-07-11] MEDS: Carvedilol 25 MG TAB PO SCH ×2 (08:49→20:32)
[2017-07-11] MEDS: Gabapentin 100 MG CAP PO SCH ×2 (08:49→20:31)
[2017-07-11] MEDS: Amlodipine 5 MG TAB PO SCH (08:49)
[2017-07-11] MEDS: Saccharomyces boulardii 250 MG CAP PO SCH (08:49)
[2017-07-11] MEDS: Senokot S 8.6-50 MG TAB PO SCH ×4 (08:50→20:31)
[2017-07-11] MEDS: Ascorbic Acid 500 mg Chewable Tablet PO SCH ×2 (08:50→20:32)
[2017-07-11] MEDS: Docusate 100 MG CAP PO SCH ×2 (08:50→20:31)
[2017-07-11] MEDS: Furosemide 40 MG TAB PO SCH (08:50)
[2017-07-11] MEDS: Famotidine 20 MG TAB PO SCH (08:50)
[2017-07-11] MEDS: HYDROcodone/Acetaminophen 5/325 mg Tablet PO PRN ×2 (08:51→20:32)
--- NOTE | 2017-07-11 10:38 | RAD ---
ONE VIEW LEFT HIP: HISTORY: Pain. COMPARISON: None. FINDINGS: Limited evaluation due to portable technique and body habitus. Contour of the femoral head appears t o be maintained. No evidence of severe degenerative change. IMPRESSION: Unremarkable 1 view left hip. Evaluation is limited as only 1 view is provided. POS: [facility]
--- NOTE | 2017-07-11 10:40 | RAD ---
RIGHT KNEE 2 VIEWS: HISTORY: Pain. COMPARISON: None. FINDINGS: There does appear to be a small suprapatellar effusion. Severe degenerative change in the medial com partment. Mild degenerative change of the patellofemoral compartment and lateral compartment. There is chondrocalcinosis. No fracture. IMPRESSION: 1. Degenerative changes as above. 2. Presumed reactive suprapatellar effusion. POS: [facility]
[2017-07-11] MEDS: Dronabinol 2.5 MG CAP PO SCH (13:47)
[2017-07-11] MEDS: Cyclobenzaprine 10 MG TAB PO PRN (20:31)
--- NOTE | 2017-07-11 20:59 | PRG ---
DATE OF SERVICE: 07/11/2017 SUBJECTIVE: Patient states she feels better today with decreased pain, is ready do more therapy. Vianca berry is having no shortness of breath at rest. She did walk 17-feet twice today and appears to be impro ving. OBJECTIVE: Shows her pulse is up to 131, however, today with temperature of 98, respirations 22 on 2 liters, blood pressure 123/60. LABORATORY DATA: Showed a white count 9200, hematocrit 29, hemoglobin 9. Accu-Cheks ranged from 84 to 248. Lungs this morning was clear. Cardiac examination showed regular rhythm, but appears to hav e increased this afternoon. ASSESSMENT: 1. Tachycardia, possible supraventricular, we will obtain EKG. 2. Adenocarcinoma of the breast, no evidence of recurrence on tamoxifen. 3. Chronic kidney disease, stage 4, stable. 4. Type 2 diabetes with controlled to goal. 5. Severe degenerative joint disease appears to be improved with steroid injection. PLAN: EKG now. Continue PT, OT. Continue furosemide for diastolic heart failure. Repeat basic met abolic profile, BNP in the a.m.
[2017-07-12] MEDS: Ondansetron ODT 4 MG TAB PO SCH ×3 (05:46→20:57)
[2017-07-12 05:54] LABS: Anion Gap 10 mmol/L (10-20); BUN (Urea Nitrogen) 62 mg/dL (9.8-20.1); Calc. Creatinine Clearance 55 mL/min (70-130); Calcium 9.2 mg/dL (7.8-10.44); Carbon Dioxide 26 mmol/L (23-31); Chloride 111 mmol/L (98-107); Estimated GFR-MDRD 27; Glucose 75 mg/dL (80-115); Potassium 5.6 mmol/L (3.5-5.1); Sodium 141 mmol/L (136-145)
[2017-07-12] MEDS: Levemir Flexpen 100 UNITS/ML PEN SC SCH ×2 (08:30→21:09)
[2017-07-12] MEDS: HYDROcodone/Acetaminophen 5/325 mg Tablet PO PRN ×4 (08:31→20:57)
[2017-07-12] MEDS: Gabapentin 100 MG CAP PO SCH ×2 (08:32→20:57)
[2017-07-12] MEDS: Furosemide 40 MG TAB PO SCH (08:32)
[2017-07-12] MEDS: Ferrous Sulfate 325 MG TAB PO SCH ×3 (08:32→17:34)
[2017-07-12] MEDS: Ascorbic Acid 500 mg Chewable Tablet PO SCH ×2 (08:32→20:57)
[2017-07-12] MEDS: Saccharomyces boulardii 250 MG CAP PO SCH (08:32)
[2017-07-12] MEDS: Amlodipine 5 MG TAB PO SCH (08:32)
[2017-07-12] MEDS: Carvedilol 25 MG TAB PO SCH ×2 (08:32→20:57)
[2017-07-12] MEDS: Famotidine 20 MG TAB PO SCH (08:32)
[2017-07-12] MEDS: Cyclobenzaprine 10 MG TAB PO PRN ×2 (09:20→20:57)
[2017-07-12] MEDS: Senokot S 8.6-50 MG TAB PO SCH ×4 (09:30→20:56)
[2017-07-12] MEDS: Docusate 100 MG CAP PO SCH ×2 (09:30→20:57)
--- NOTE | 2017-07-12 11:52 | RAD ---
SINGLE VIEW CHEST: HISTORY: CHF exacerbation and possible pneumonia. COMPARISON: 07/09/2017 FINDINGS: A single view of the chest shows an enlarged cardiomediastinal silhouette. Opacity is again seen in the right lung base, which likely represents a total effusion and adjacent atelectasis versus infiltr ate. IMPRESSION: Stable exam. POS: [facility]
[2017-07-12] MEDS: Dronabinol 2.5 MG CAP PO SCH (14:28)
--- NOTE | 2017-07-12 18:26 | PRG ---
DATE OF SERVICE: 07/12/2017 SUBJECTIVE: The patient did cooperate today with therapy and did stand with assistance and pivot and walk 18 feet 3 times, became very fatigued, but did cooperate, and appeared to be making progress. The patient states that her pain in her legs is controlled with hydrocodone and she is breathing much better. OBJECTIVE: VITAL SIGNS: Sow her to have blood pressure increased to 177 this morning, but has been normal. Pul se is 85. LABORATORY DATA: EKG done showed only in sinus rhythm with occasional PVCs. She did have evidence o f tachycardia with no EKG last night. Accu-Cheks well controlled from 71-164. Sodium was 141, potas sium 5.6, chloride 111, bicarbonate 26, BUN 62, creatinine 1.88. BNP stable at 756. Lungs show decr eased breath sounds in the bases, but no rales or rhonchi. ASSESSMENT: 1. Diastolic heart failure, slowly improving with oral Lasix. 2. Metastatic cancer of the breast with controlled malignant pleural effusion, on tamoxifen. 3. Significant degenerative joint disease of the knee with pain control with hydrocodone cooperating with therapy. 4. Severe deconditioning, slowly improving. 5. Type 2 diabetes, controlled to goal. PLAN: 1. Continue PT, OT. 2. Continue pain therapy prior to PT, OT. 3. Continue furosemide for diastolic heart failure, appears to be stabilizing. 4. Continue tamoxifen for malignant cancer of the breast.
[2017-07-13] MEDS: Ondansetron ODT 4 MG TAB PO SCH ×3 (06:02→21:33)
[2017-07-13] MEDS ORDERED: Sodium Chloride 0.9% 1,000 ML IV SCH (07:00)
[2017-07-13] MEDS: HYDROcodone/Acetaminophen 5/325 mg Tablet PO PRN ×3 (07:58→17:53)
[2017-07-13] MEDS: Levemir Flexpen 100 UNITS/ML PEN SC SCH ×2 (07:59→21:33)
[2017-07-13] MEDS: Cyclobenzaprine 10 MG TAB PO PRN (09:06)
[2017-07-13] MEDS: Amlodipine 5 MG TAB PO SCH (09:06)
[2017-07-13] MEDS: Famotidine 20 MG TAB PO SCH (09:07)
[2017-07-13] MEDS: Furosemide 40 MG TAB PO SCH (09:08)
[2017-07-13] MEDS: Saccharomyces boulardii 250 MG CAP PO SCH (09:08)
[2017-07-13] MEDS: Ferrous Sulfate 325 MG TAB PO SCH ×2 (09:08→17:53)
[2017-07-13] MEDS: Carvedilol 25 MG TAB PO SCH ×2 (09:08→17:53)
[2017-07-13] MEDS: Gabapentin 100 MG CAP PO SCH ×2 (09:08→21:34)
[2017-07-13] MEDS: Ascorbic Acid 500 mg Chewable Tablet PO SCH ×2 (09:08→17:53)
[2017-07-13] MEDS: Docusate 100 MG CAP PO SCH ×2 (09:09→21:34)
[2017-07-13] MEDS: Senokot S 8.6-50 MG TAB PO SCH ×4 (09:10→21:34)
[2017-07-13] MEDS: Dronabinol 2.5 MG CAP PO SCH (13:40)
--- NOTE | 2017-07-13 21:25 | PRG ---
DATE OF SERVICE: 07/13/2017 SUBJECTIVE: The patient feels much better. States she has decreased pain and shoulder pain with hyd rocodone cooperating with therapy, is denying any real shortness of breath, abdominal pain. Feels sh e is getting better. OBJECTIVE: Blood pressure 170/71, temperature is 98, pulse 78, respirations 16, O2 sats 96% on 2 lit ers. Accu-Cheks range from 164 to 80 this afternoon. PT states that patient cooperated today with m kaceyerate to minimal assist transfer and was cooperating limited by pain, but improving. ASSESSMENT: 1. Stable cancer of the breast with right malignant effusion on toxin. 2. Diastolic heart failure, improving. Lasix 40 mg daily with laboratory to be base met function to be drawn tomorrow. 3. Left hip pain, improved with hydrocodone and we will continue plan continue PT, OT. Continue martinez oxifen. 4. Continue Levemir 40 units twice daily. 5. Ischemia and stress diabetic control. 6. Continue hydrocodone for pain relief.
[2017-07-14 05:50] LABS: Anion Gap 14 mmol/L (10-20); BUN (Urea Nitrogen) 69 mg/dL (9.8-20.1); Calc. Creatinine Clearance 47 mL/min (70-130); Calcium 8.9 mg/dL (7.8-10.44); Carbon Dioxide 24 mmol/L (23-31); Chloride 110 mmol/L (98-107); Estimated GFR-MDRD 22; Glucose 123 mg/dL (80-115); Potassium 5.9 mmol/L (3.5-5.1); Sodium 142 mmol/L (136-145)
[2017-07-14] MEDS: Ondansetron ODT 4 MG TAB PO SCH ×3 (06:08→21:24)
[2017-07-14] MEDS: Ferrous Sulfate 325 MG TAB PO SCH ×2 (08:09→16:36)
[2017-07-14] MEDS: Carvedilol 25 MG TAB PO SCH ×2 (08:10→16:36)
[2017-07-14] MEDS: Ascorbic Acid 500 mg Chewable Tablet PO SCH ×2 (08:10→16:36)
[2017-07-14] MEDS: Saccharomyces boulardii 250 MG CAP PO SCH (08:10)
[2017-07-14] MEDS: Furosemide 40 MG TAB PO SCH (08:11)
[2017-07-14] MEDS: Gabapentin 100 MG CAP PO SCH ×2 (08:11→21:25)
[2017-07-14] MEDS: Famotidine 20 MG TAB PO SCH (08:11)
[2017-07-14] MEDS: Amlodipine 5 MG TAB PO SCH (08:11)
[2017-07-14] MEDS: HYDROcodone/Acetaminophen 5/325 mg Tablet PO PRN ×3 (08:12→21:25)
[2017-07-14] MEDS: Cyclobenzaprine 10 MG TAB PO PRN ×2 (08:13→21:25)
[2017-07-14] MEDS: Levemir Flexpen 100 UNITS/ML PEN SC SCH ×2 (08:15→21:34)
[2017-07-14] MEDS: Senokot S 8.6-50 MG TAB PO SCH ×4 (08:52→21:25)
[2017-07-14] MEDS: Docusate 100 MG CAP PO SCH ×2 (08:52→21:24)
--- NOTE | 2017-07-14 14:47 | PRG ---
DATE OF SERVICE: 07/14/2017 SUBJECTIVE: The patient feels better lying in bed but according to therapy, still has significant pa in in her hip, limiting therapy. The patient states she is feeling better but therapist states, she is improving only slightly. Denies any shortness of breath or chest pain at rest. In fact is asking to have her Marinol discontinue. OBJECTIVE: VITAL SIGNS: Blood pressure 120/58, O2 sats 93%, pulse 72 on 2 liters. LUNGS: Decreased breath sounds in the bases, but no rales or rhonchi. CARDIAC: Regular rate and rhythm. ABDOMEN: Obese, nontender. SKIN/EXTREMITIES: Show 1+ edema, crepitance in the knees and hip on rotation. LABORATORY DATA: Shows sodium 142, potassium 5.9, chloride 110, bicarbonate 24, BUN 69, creatinine 2 .1, increased from 1.77. ASSESSMENT: 1. Diastolic heart failure, appears to be at baseline. 2. Acute on chronic renal failure possibly deteriorating secondary to diuretics and we will decrease furosemide to 40 mg every other day. 3. Severe degenerative joint disease of knees and hips limiting therapy and we will continue to [facility]. We will change furosemide to 20 mg daily.
[2017-07-15 05:48] LABS: Anion Gap 13 mmol/L (10-20); BUN (Urea Nitrogen) 68 mg/dL (9.8-20.1); Calc. Creatinine Clearance 49 mL/min (70-130); Calcium 8.8 mg/dL (7.8-10.44); Carbon Dioxide 25 mmol/L (23-31); Chloride 110 mmol/L (98-107); Estimated GFR-MDRD 24; Glucose 75 mg/dL (80-115); Potassium 5.8 mmol/L (3.5-5.1); Sodium 142 mmol/L (136-145)
[2017-07-15] MEDS: Ondansetron ODT 4 MG TAB PO SCH ×3 (05:59→21:36)
[2017-07-15] MEDS: Gabapentin 100 MG CAP PO SCH ×2 (08:50→21:35)
[2017-07-15] MEDS: Famotidine 20 MG TAB PO SCH (08:50)
[2017-07-15] MEDS: Saccharomyces boulardii 250 MG CAP PO SCH (08:51)
[2017-07-15] MEDS: Senokot S 8.6-50 MG TAB PO SCH ×4 (08:51→21:36)
[2017-07-15] MEDS: Amlodipine 5 MG TAB PO SCH (08:51)
[2017-07-15] MEDS: Docusate 100 MG CAP PO SCH ×2 (08:51→21:37)
[2017-07-15] MEDS: Ferrous Sulfate 325 MG TAB PO SCH ×2 (08:52→18:17)
[2017-07-15] MEDS: Ascorbic Acid 500 mg Chewable Tablet PO SCH ×2 (08:52→18:18)
[2017-07-15] MEDS: Carvedilol 25 MG TAB PO SCH ×2 (08:52→18:17)
[2017-07-15] MEDS: Furosemide 20 MG TAB PO SCH (08:52)
[2017-07-15] MEDS: HYDROcodone/Acetaminophen 5/325 mg Tablet PO PRN (09:04)
[2017-07-15] MEDS: Levemir Flexpen 100 UNITS/ML PEN SC SCH ×2 (09:05→21:37)
--- NOTE | 2017-07-15 11:33 | PRG ---
DATE OF SERVICE: 07/15/2017 SUBJECTIVE: Ms. Camargo is doing well. She is up in her bed and resting comfortably. No family at bedside, discussed with nursing. She denies any chest pain or shortness of breath. She states that her back pain has pretty much resolved. OBJECTIVE: VITAL SIGNS: She is afebrile, heart rate 76, respirations 16, oxygen saturation 96%. She is on oxyg en via nasal cannula, although it is documented here as she is on room air, blood pressure 133/63. CARDIOVASCULAR: S1, S2 plus. RESPIRATORY: Normal vesicular breath sounds. She is having decreased air entry in the right base. ABDOMEN: Soft, obese, nontender. Bowel sounds heard in all quadrants. EXTREMITIES: Without cyanosis or clubbing. Trace edema. LABORATORY VALUES: Sodium 142. Potassium 5.8, it was 5.9 yesterday. BUN and creatinine 68 and 2.10 , it was 69 and 2.19 yesterday. Blood sugars are 280, 247, 111, and 201. IMPRESSION: 1. Slight worsening of renal function, but slowly stabilizing and slight improvement today. We will continue to monitor and continue Lasix 20 daily. 2. Low back pain, resolved. 3. Clostridium difficile colitis, resolved. 4. Malignant pleural effusion, status post thoracentesis, no evidence of recurrence. 5. Diabetes mellitus type 2, fluctuating control. 6. Deconditioning, slow improvement. 7. Hypoxemia. We will continue to titrate oxygen. PLAN: 1. Continue current medications. 2. Increase activity. 3. Titrate oxygen. 4. DVT and stress ulcer prophylaxis. 5. Decubitus precautions. 6. Routine laboratory values. 7. Monitor blood sugars and adjust medications. 8. Watch for any signs or symptoms of worsening of her respiratory status due to reaccumulation of t he fluid. Clinically, she is stable at this point.
[2017-07-15] MEDS: Cyclobenzaprine 10 MG TAB PO PRN (21:35)
[2017-07-16 05:41] LABS: Anion Gap 11 mmol/L (10-20); BUN (Urea Nitrogen) 68 mg/dL (9.8-20.1); Calc. Creatinine Clearance 53 mL/min (70-130); Calcium 8.7 mg/dL (7.8-10.44); Carbon Dioxide 26 mmol/L (23-31); Chloride 111 mmol/L (98-107); Estimated GFR-MDRD 26; Glucose 118 mg/dL (80-115); Sodium 142 mmol/L (136-145)
[2017-07-16] MEDS: Ondansetron ODT 4 MG TAB PO SCH ×3 (06:12→21:15)
[2017-07-16] MEDS: Ferrous Sulfate 325 MG TAB PO SCH ×2 (08:59→17:20)
[2017-07-16] MEDS: Famotidine 20 MG TAB PO SCH (09:00)
[2017-07-16] MEDS: Senokot S 8.6-50 MG TAB PO SCH ×4 (09:00→21:16)
[2017-07-16] MEDS: Docusate 100 MG CAP PO SCH ×2 (09:00→21:16)
[2017-07-16] MEDS: Amlodipine 5 MG TAB PO SCH (09:01)
[2017-07-16] MEDS: Furosemide 20 MG TAB PO SCH (09:01)
[2017-07-16] MEDS: Gabapentin 100 MG CAP PO SCH ×2 (09:02→21:16)
[2017-07-16] MEDS: Ascorbic Acid 500 mg Chewable Tablet PO SCH ×2 (09:02→17:20)
[2017-07-16] MEDS: Carvedilol 25 MG TAB PO SCH ×2 (09:02→17:20)
[2017-07-16] MEDS: Saccharomyces boulardii 250 MG CAP PO SCH (09:03)
[2017-07-16] MEDS: Levemir Flexpen 100 UNITS/ML PEN SC SCH ×2 (09:03→21:15)
[2017-07-16] MEDS: HYDROcodone/Acetaminophen 5/325 mg Tablet PO PRN (09:10)
--- NOTE | 2017-07-16 11:35 | PRG ---
DATE OF SERVICE: 07/16/2017 SUBJECTIVE: Ms. Camargo is doing well. Denies any complaints, resting comfortably. Her renal func tions are better, but her potassium is high. She denies any chest pain or shortness of breath. Luis es any palpitations. She states that she is not eating bananas or orange, and not drinking orange ju ice. I advised her that I am going to give her some Kayexalate to help with her potassium level and also make a low potassium diet. No family at bedside. Her back is much improved and she states that her breathing is the same. OBJECTIVE: VITAL SIGNS: She is afebrile, heart rate 74, respirations 16, oxygen saturation 98%, and blood press ure 158/68. CARDIOVASCULAR: S1 and S2 plus. RESPIRATORY: Normal vesicular breath sounds. ABDOMEN: Soft, obese, nontender. Bowel sounds heard in all quadrants. EXTREMITIES: Without cyanosis or clubbing. Trace edema. Peripheral pulses are palpable. CENTRAL NERVOUS SYSTEM: Improving deconditioning. LABORATORY VALUES: Sodium 142, potassium 6.0, it was 5.8 yesterday. BUN and creatinine 68 and 1.94, it was 68 and 2.10 yesterday. Blood sugars are 75, 144, 170, 180, and 118. IMPRESSION: 1. Hyperkalemia, worsening. 2. Renal insufficiency, stabilizing. 3. Malignant pleural effusion, stable. 4. Low back pain, resolved. 5. Deconditioning, slow improvement. 6. Clostridium difficile colitis, resolved. 7. Diabetes mellitus type 2, reasonable control. 8. Hypoxemia, stable. PLAN: 1. Trial of Kayexalate 30 grams p.o. now. 2. Low potassium diet. 3. Continue to titrate oxygen. 4. Accu-Cheks with sliding scale coverage. 5. Monitor blood pressure and respiratory status closely. 6. Recheck laboratory values in the morning. 7. Dr. Shreyas Lan back to night.
[2017-07-16] MEDS: Cyclobenzaprine 10 MG TAB PO PRN (21:16)
[2017-07-17] MEDS: Ondansetron ODT 4 MG TAB PO SCH ×3 (05:04→21:38)
[2017-07-17 05:40] LABS: #Basophils 0.1 thou/uL (0.0-0.2); #Eosinphils 0.1 thou/uL (0.0-0.7); #Lymphocytes 1.2 thou/uL (1.20-3.40); #Monocytes 0.7 thou/uL (0.11-0.59); #Neutrophils 4.3 thou/uL (1.40-6.50); %Basophils 1.4 % (0.0-1.0); %Eosinophils 2.1 % (0.0-10.0); %Monocytes 10.7 % (0.0-10.0); %Neutrophils 66.7 % (42.0-75.0); Hemoglobin 7.8 g/dL (12.0-16.0); Hypochromia SLIGHT = 6-15 cells (100X) (0-5/hpf); MDiff Complete? YES; Mean Corpuscular HGB CONC 28.6 g/dL (32.0-36.0); Mean Corpuscular Hemoglobin 25.9 pg (27.0-31.0); Mean Corpuscular Volume 90.5 fl (81.0-99.0); Mean Platelet Volume 6.3 fL (7.4-10.4); Microcytosis SLIGHT = 6-15 cells (100X) (0-5/hpf); PLT Morphology Comment Appears Adequate; Platelet Count 309 thou/uL (130-400); RBC Distribution Width 19.1 % (11.5-14.5); Red Blood Cell (RBC) Count 3.02 mill/uL (4.20-5.40); Stomatocytes SLIGHT = 2-5 cells (100X) (0-1/hpf); Tear Drops SLIGHT = 2-5 cells (100X) (0-1/hpf); White Blood Cell (WBC) Count 6.5 thou/uL (4.8-10.8)
[2017-07-17 05:49] LABS: Anion Gap 12 mmol/L (10-20); BUN (Urea Nitrogen) 66 mg/dL (9.8-20.1); Calc. Creatinine Clearance 59 mL/min (70-130); Calcium 8.8 mg/dL (7.8-10.44); Carbon Dioxide 26 mmol/L (23-31); Chloride 111 mmol/L (98-107); Estimated GFR-MDRD 29; Glucose 121 mg/dL (80-115); Potassium 5.9 mmol/L (3.5-5.1); Sodium 143 mmol/L (136-145)
[2017-07-17] MEDS: Levemir Flexpen 100 UNITS/ML PEN SC SCH ×2 (08:19→21:37)
[2017-07-17] MEDS: HYDROcodone/Acetaminophen 5/325 mg Tablet PO PRN (08:20)
[2017-07-17] MEDS: Cyclobenzaprine 10 MG TAB PO PRN (08:21)
[2017-07-17] MEDS: Furosemide 20 MG TAB PO SCH (08:22)
[2017-07-17] MEDS: Docusate 100 MG CAP PO SCH ×2 (08:22→21:39)
[2017-07-17] MEDS: Ascorbic Acid 500 mg Chewable Tablet PO SCH ×2 (08:22→17:17)
[2017-07-17] MEDS: Saccharomyces boulardii 250 MG CAP PO SCH (08:23)
[2017-07-17] MEDS: Gabapentin 100 MG CAP PO SCH ×2 (08:23→21:39)
[2017-07-17] MEDS: Amlodipine 5 MG TAB PO SCH (08:23)
[2017-07-17] MEDS: Senokot S 8.6-50 MG TAB PO SCH ×4 (08:23→21:40)
[2017-07-17] MEDS: Famotidine 20 MG TAB PO SCH (08:23)
[2017-07-17] MEDS: Carvedilol 25 MG TAB PO SCH ×2 (08:25→17:17)
[2017-07-17] MEDS: Ferrous Sulfate 325 MG TAB PO SCH ×2 (08:25→17:17)
[2017-07-18] MEDS: Ondansetron ODT 4 MG TAB PO SCH ×3 (06:29→21:26)
[2017-07-18] MEDS: Amlodipine 5 MG TAB PO SCH (08:48)
[2017-07-18] MEDS: Carvedilol 25 MG TAB PO SCH ×2 (08:49→17:26)
[2017-07-18] MEDS: Docusate 100 MG CAP PO SCH ×2 (08:49→21:27)
[2017-07-18] MEDS: Ascorbic Acid 500 mg Chewable Tablet PO SCH ×2 (08:49→17:26)
[2017-07-18] MEDS: Senokot S 8.6-50 MG TAB PO SCH ×4 (08:49→21:27)
[2017-07-18] MEDS: Furosemide 20 MG TAB PO SCH (08:49)
[2017-07-18] MEDS: Gabapentin 100 MG CAP PO SCH ×2 (08:49→21:27)
[2017-07-18] MEDS: Saccharomyces boulardii 250 MG CAP PO SCH (08:50)
[2017-07-18] MEDS: Cyclobenzaprine 10 MG TAB PO PRN ×2 (08:50→21:27)
[2017-07-18] MEDS: Famotidine 20 MG TAB PO SCH (08:51)
[2017-07-18] MEDS: HYDROcodone/Acetaminophen 5/325 mg Tablet PO PRN (08:51)
[2017-07-18] MEDS: Ferrous Sulfate 325 MG TAB PO SCH ×2 (08:51→17:26)
[2017-07-18] MEDS: Levemir Flexpen 100 UNITS/ML PEN SC SCH ×2 (08:52→21:25)
--- NOTE | 2017-07-18 20:54 | PRG ---
DATE OF SERVICE: 07/18/2017. HISTORY OF PRESENT ILLNESS: Ms. Camargo is a very pleasant 66-year-old white female, admitted to [facility] initially with diastolic congestive heart failure. She was found to have a urinary tract infection and decreased breath sounds. On further evaluation, she had a right pleural effusion, whic h was tapped and sent off, which returned with metastatic adenocarcinoma with breast cells. She even tually was transferred to [facility] for diuresing and with Flagyl and vancomycin. She is here also for physical therapy and occupational therapy. When I walked into the room this morning, the patient was doing physical therapy and actually is grad ually improving. I have not seen the patient in approximately 2 weeks and she is much improved. She has no complaints today. LABORATORY DATA: Today reveals a white count of 6000 with hemoglobin of 7.8, hematocrit 27.4 and a p latelet count of 309,000. Sodium is 143, potassium 5.9, chloride 111, carbon dioxide 26 with a BUN o f 66 and a creatinine of 1.75. Her creatinine has continued to decrease from 2.19 to 2.10 to 1.94 to 1.75 today. Her GFR has increased from 22 to 29. Her sugar this morning was stable at 121. PHYSICAL EXAMINATION: VITAL SIGNS: Blood pressure this morning 140/63, pulse 74, respirations 18, O2 sat 97% on 2 liters n robin cannula. T-max is 98.1. GENERAL: This is a well-developed, well-nourished, very pleasant black female in no apparent distres s at this time. HEENT: Reveals normocephalic, nontraumatic cranium. Pupils equally round and reactive. Extraocular movements are intact. Nose and throat are slightly dry. NECK: Supple, without masses, nodes or bruits. LUNGS: The chest is clear to auscultation. No rales, no rhonchi, no wheezes are heard. The patient does have somewhat decreased breath sounds or dullness in the right base. CARDIOVASCULAR: Heart reveals a regular rate and rhythm without murmurs, gallops or rubs. ABDOMEN: Obese, soft, nontender without organomegaly. Normal bowel sounds are noted in all 4 quadra nts. No rebound or guarding is noted. GENITOURINARY: Deferred. EXTREMITIES: Reveal no clubbing or cyanosis with trace edema noted. IMPRESSION: 1. Slightly improving renal function. 2. Low back pain, much improved. 3. Clostridium difficile, much improved. 4. Malignant pleural effusion, status post thoracentesis with malignant breast cells. 5. Diabetes type 2, fairly well controlled. 6. Generalized weakness. 7. Hypoxemia. PLAN: 1. Continue physical therapy and occupational therapy. 2. Titrate oxygen as needed. 3. Continue present medication. 4. Stress ulcer prophylaxis. 5. DVT prophylaxis. 6. Decubitus precautions. 7. Continue to follow the patient's routine labs. 8. Monitor blood sugars and adjust as needed with Accu-Cheks a.c. and at bedtime. 9. Monitor the patient's respiratory status closely.
[2017-07-18] MEDS: Acetaminophen 325 MG TAB PO PRN (21:25)
[2017-07-19] MEDS: Ondansetron ODT 4 MG TAB PO SCH ×3 (06:18→23:37)
[2017-07-19] MEDS: Amlodipine 5 MG TAB PO SCH (08:40)
[2017-07-19] MEDS: Ascorbic Acid 500 mg Chewable Tablet PO SCH ×2 (08:41→17:04)
[2017-07-19] MEDS: Famotidine 20 MG TAB PO SCH (08:41)
[2017-07-19] MEDS: Carvedilol 25 MG TAB PO SCH ×2 (08:41→17:04)
[2017-07-19] MEDS: Saccharomyces boulardii 250 MG CAP PO SCH (08:41)
[2017-07-19] MEDS: Ferrous Sulfate 325 MG TAB PO SCH ×2 (08:41→17:04)
[2017-07-19] MEDS: Gabapentin 100 MG CAP PO SCH ×2 (08:42→20:20)
[2017-07-19] MEDS: Furosemide 20 MG TAB PO SCH (08:42)
[2017-07-19] MEDS: HYDROcodone/Acetaminophen 5/325 mg Tablet PO PRN ×3 (08:42→20:20)
[2017-07-19] MEDS: Levemir Flexpen 100 UNITS/ML PEN SC SCH ×2 (08:44→20:21)
[2017-07-19] MEDS: Docusate 100 MG CAP PO SCH ×2 (08:44→20:21)
[2017-07-19] MEDS: Senokot S 8.6-50 MG TAB PO SCH ×4 (08:45→20:20)
[2017-07-19] MEDS: Cyclobenzaprine 10 MG TAB PO PRN (20:21)
--- NOTE | 2017-07-19 21:05 | PRG ---
DATE OF SERVICE: 07/19/2017 HISTORY OF PRESENT ILLNESS: The patient is a very pleasant 66-year-old black female admitted to the hospital with diastolic congestive heart failure. She had a right pleural effusion which was tapped and decels return with metastatic adenocarcinoma with breast cells. She was transferred to [facility] for continued diuresis and IV antibiotics, Flagyl and vancomycin. These were stopp ed because of a resistant urinary tract infection. The patient is actually receiving lots of physical therapy and occupational therapy and seems to be s lowly progressing. She walked 20 feet and 28 feet today which is a significant milestone for her. OBJECTIVE: VITAL SIGNS: Blood pressure this morning 147/67, pulse 74-89, respirations 18-20, O2 sat 93%-96% on 2 liters, T-max is 98.0. LABORATORY DATA: Today reveals Accu-Cheks fasting this morning 60 before that 47, at bedtime last ni ght was 130, before supper 121, before lunch 87, before breakfast 73. For lunch today, the patient's sugars 164, before supper 244. PHYSICAL EXAMINATION: GENERAL: This is a well-developed, well-nourished, very pleasant, 66-year-old female in no apparent distress at this time. HEENT: Reveals normocephalic, nontraumatic cranium. Pupils equally round and reactive. Extraocular movements intact. Nose and throat are slightly dry, but clear. NECK: Supple, without mass, nodes or bruits. LUNGS: The chest is clear to auscultation. No rales, no rhonchi, no wheezes are heard. The patient does have somewhat decreased breath sounds, especially in the right base. CARDIOVASCULAR: Reveals a regular rate and rhythm without murmurs, gallops or rubs. ABDOMEN: Obese, soft, nontender, without organomegaly, normal bowel sounds noted in all 4 quadrants. The patient does not have any rebound or guarding today. : Deferred. EXTREMITIES: Reveal no clubbing, cyanosis or edema. IMPRESSION: 1. Slow increase improvement in her creatinine, which we repeated tomorrow. 2. Low back pain, which is much improved. 2. Malignant pleural effusion, status post thoracentesis of malignant breast cells. 3. Diabetes type 2, well controlled except had hypoglycemic episodes this morning for unknown reason . 4. Generalized weakness. PLAN: 1. Continue to titrate the patient's oxygen needs. 2. Continue stress ulcer prophylaxis. 3. DVT prophylaxis. 4. Decubitus precautions. 5. Continue to monitor the patient's Accu-Cheks a.c. and at bedtime. 6. Monitor patient's respiratory status. 7. Continue to follow the patient's routine labs, which will be done again tomorrow morning.
[2017-07-20 05:48] LABS: Anion Gap 11 mmol/L (10-20); BUN (Urea Nitrogen) 50 mg/dL (9.8-20.1); Calc. Creatinine Clearance 62 mL/min (70-130); Calcium 8.7 mg/dL (7.8-10.44); Carbon Dioxide 26 mmol/L (23-31); Chloride 113 mmol/L (98-107); Estimated GFR-MDRD 31; Glucose 91 mg/dL (80-115); Potassium 6.2 mmol/L (3.5-5.1); Sodium 144 mmol/L (136-145)
[2017-07-20 05:52] LABS: Hemoglobin 7.8 g/dL (12.0-16.0); Mean Corpuscular HGB CONC 28.7 g/dL (32.0-36.0); Mean Corpuscular Hemoglobin 26.2 pg (27.0-31.0); Mean Corpuscular Volume 91.3 fl (81.0-99.0); Platelet Count 278 thou/uL (130-400); RBC Distribution Width 19.2 % (11.5-14.5); Red Blood Cell (RBC) Count 2.99 mill/uL (4.20-5.40); White Blood Cell (WBC) Count 6.7 thou/uL (4.8-10.8)
[2017-07-20 05:53] LABS: Band 3 % (5-11); Eosinophils 3 % (0-10); Lymphocytes 16 % (21-51); MDiff Complete? YES; Microcytosis MODERATE=15-30 cells (100X) (0-5/hpf); Monocytes 9 % (0-10); Neutrophil 69 % (42-75); Ovalocytes SLIGHT = 2-5 cells (100X) (0-1/hpf); PLT Morphology Comment Appears Adequate; Poikilocytosis MODERATE=16-30 cells (100X) (0-5/hpf); Spherocytes SLIGHT = 1-5 cells (100X) (None Seen); Target Cells SLIGHT = 2-5 cells (100X) (0-1/hpf)
[2017-07-20] MEDS: Ondansetron ODT 4 MG TAB PO SCH ×3 (06:02→21:42)
[2017-07-20] MEDS: Saccharomyces boulardii 250 MG CAP PO SCH (08:49)
[2017-07-20] MEDS: HYDROcodone/Acetaminophen 5/325 mg Tablet PO PRN ×3 (08:50→21:43)
[2017-07-20] MEDS: Carvedilol 25 MG TAB PO SCH ×2 (08:55→17:26)
[2017-07-20] MEDS: Gabapentin 100 MG CAP PO SCH ×2 (08:55→21:44)
[2017-07-20] MEDS: Amlodipine 5 MG TAB PO SCH (08:55)
[2017-07-20] MEDS: Famotidine 20 MG TAB PO SCH (08:59)
[2017-07-20] MEDS: Ascorbic Acid 500 mg Chewable Tablet PO SCH ×2 (08:59→17:26)
[2017-07-20] MEDS: Furosemide 20 MG TAB PO SCH (09:00)
[2017-07-20] MEDS: Ferrous Sulfate 325 MG TAB PO SCH ×2 (09:00→17:20)
[2017-07-20] MEDS: Levemir Flexpen 100 UNITS/ML PEN SC SCH ×2 (09:06→21:44)
[2017-07-20] MEDS: Docusate 100 MG CAP PO SCH ×2 (09:11→21:43)
[2017-07-20] MEDS: Senokot S 8.6-50 MG TAB PO SCH ×4 (09:11→21:42)
--- NOTE | 2017-07-20 19:01 | PRG ---
DATE OF ADMISSION: 06/23/2017 DATE OF SERVICE: 07/20/2017 HISTORY OF PRESENT ILLNESS: This is a very pleasant 66-year-old white female admitted to hospital in [facility] with diastolic congestive heart failure. Unfortunately, she had a urinary tract infection on top of that. She had decreased breath sounds and found to have a right pleural effusion, which was tapped. Unfortunately, it came back with metastatic adenocarcinoma of the breath cells. She was felton ntually transferred to [facility] for diuresis and for physical therapy and occupatio nal therapy. SUBJECTIVE: The patient states she is doing well today. She had a better day and she feels anything stronger. She has not walked yet today, but she walked 20 feet once and then 28 feet the second flower e, which is much improved. OBJECTIVE: VITAL SIGNS: Revealed blood pressure 136/63, pulse 77-78, respirations 18, O2 sat 96% on 2 liters. T-max is 98.2. GENERAL: This is a well-developed, well-nourished, very pleasant black female, in no apparent distre ss at this time. HEENT: Reveals normocephalic, nontraumatic cranium. Pupils are equal, round, and reactive. Extraoc ular movements are intact. Nose and throat are slightly dry, but clear. NECK: Supple, without mass, nodes or bruits. CHEST: Clear to auscultation. No rales, rhonchi or wheezes are heard. CARDIOVASCULAR: Reveals a regular rate and rhythm without murmurs, gallops or rubs. ABDOMEN: Soft, nontender, without organomegaly. Normal bowel sounds are noted. No rebound or guard ing is noted. : Deferred. EXTREMITIES: Reveal no clubbing, cyanosis or edema. LABORATORY DATA: Reveals blood work this morning, white count is 6700 with a hemoglobin of 7.8, gerardo tocrit 27.3 and a platelet count of 278,000. Electrolytes reveal sodium 144, potassium 6.2, chloride 113, carbon dioxide 26 with a BUN 50, creatin ine 1.66, which is actually much improved. Sugar was 91. IMPRESSION: 1. Improving renal function. 2. Low back pain, much improved. 3. Clostridium difficile, much improved. 4. Malignant pleural effusion, stable. 5. Diabetes, type 2, fairly well controlled. 6. Hypoxemia, resolved. 7. Generalized weakness. PLAN: 1. Continue PT and OT. 2. Titrate oxygen as needed. 3. Continue present medication. 4. Stress ulcer prophylaxis. 5. DVT prophylaxis. 6. Decubitus precautions. 7. Continue to follow the patient's routine labs. 8. Monitor blood sugars and adjust as needed with Accu-Cheks a.c. and at bedtime. 9. Monitor the patient's respiratory status.
[2017-07-20] MEDS: Cyclobenzaprine 10 MG TAB PO PRN (21:42)
[2017-07-21] MEDS: Ondansetron ODT 4 MG TAB PO SCH ×3 (05:42→21:07)
--- NOTE | 2017-07-21 07:33 | PRG ---
DATE OF SERVICE: 07/21/2017 HISTORY OF PRESENT ILLNESS: Mrs. Camargo is a very pleasant 65-year-old black female, patient of Dr Andrew Lan's admitted to the hospital initially with diastolic congestive heart failure. She was fou nd to have a pleural effusion which was tapped and revealed that she had metastatic adenocarcinoma fr om her breast. She was also found to have urinary tract infection. She was treated and eventually t ransferred to [facility] in [place] for continued diuresis, physical therapy and occupation al therapy. The patient states she is doing well today, but she began to retain some fluid in her legs and actual ly she has a little rales in her chest today. We will bump her Lasix from 20 to 40. VITAL SIGNS: Today reveal blood pressure 142/66, respirations 20-22, O2 sat 95% on 2 liters, tempera ture max 99.3. LABORATORY DATA: Laboratory yesterday revealed white count 6000, hemoglobin is 7.8, hematocrit 27.3, platelet count 278,000. Sodium 144, potassium 6.2, chloride 113, BUN 50, creatinine 1.66, which is much improved. She started at 2.19, decreased to 2.10, decreased to 1.9, decreased to 1.75 and decre ased to 1.66 yesterday. PHYSICAL EXAMINATION: GENERAL: This is a well-developed, well-nourished, slightly obese black female in no apparent distre ss at this time. HEENT: Reveals normocephalic, nontraumatic cranium. Pupils are equally round and reactive. Extraoc ular movements intact. Nose and throat are dry, but clear. NECK: Supple, without masses, nodes or bruits. No jugular venous distention is seen today. LUNGS: Chest is clear to auscultation, but the patient has early crackles in her deep bases and some decreased on the right side were pleural effusion was. She has no cough today. CARDIOVASCULAR: Reveals a regular rate and rhythm without murmurs, gallops or rubs. No S3 or S4 is noted. ABDOMEN: Soft, nontender, obese. Normal bowel sounds are noted. No rebound or guarding is noted. Organomegaly cannot be appreciated because of her obesity. : Deferred. EXTREMITIES: Reveal no clubbing, cyanosis with +1 edema today. IMPRESSION: 1. Returning early congestive heart failure. We will increase her Lasix to 40. 2. Improved renal function. We will follow closely. 3. Low back pain, improved. 4. Clostridium difficile, improved. 5. Malignant pleural effusion, metastatic breast. 6. Diabetes type 2, fairly well controlled with a low this morning of 66 so we have cut back her Barrera tus. 7. Generalized weakness. PLAN: 1. Increase Lasix from 20 to 40 each morning. 2. Continue to follow the indices. 3. Decrease Lantus at night from 40 to 38. 4. Stress ulcer prophylaxis. 5. DVT prophylaxis. 6. Decubitus precautions. 7. Continue to follow the patient's routine labs. 8. Monitor the patient's blood sugars with Accu-Cheks a.c. and at bedtime. 9. Monitor the patient's respiratory status. 10. Continue therapy.
[2017-07-21] MEDS: Gabapentin 100 MG CAP PO SCH ×2 (08:14→21:07)
[2017-07-21] MEDS: Ferrous Sulfate 325 MG TAB PO SCH ×2 (08:14→17:16)
[2017-07-21] MEDS: Furosemide 40 MG TAB PO SCH (08:14)
[2017-07-21] MEDS: Ascorbic Acid 500 mg Chewable Tablet PO SCH ×2 (08:14→17:16)
[2017-07-21] MEDS: Carvedilol 25 MG TAB PO SCH ×2 (08:14→17:16)
[2017-07-21] MEDS: Amlodipine 5 MG TAB PO SCH (08:14)
[2017-07-21] MEDS: Saccharomyces boulardii 250 MG CAP PO SCH (08:14)
[2017-07-21] MEDS: Famotidine 20 MG TAB PO SCH (08:14)
[2017-07-21] MEDS: HYDROcodone/Acetaminophen 5/325 mg Tablet PO PRN ×2 (08:14→21:06)
[2017-07-21] MEDS: Senokot S 8.6-50 MG TAB PO SCH ×4 (08:17→21:08)
[2017-07-21] MEDS: Docusate 100 MG CAP PO SCH ×2 (08:17→21:07)
[2017-07-21] MEDS: Levemir Flexpen 100 UNITS/ML PEN SC SCH ×2 (08:19→21:08)
[2017-07-21] MEDS: Cyclobenzaprine 10 MG TAB PO PRN (21:06)
[2017-07-22] MEDS: Ondansetron ODT 4 MG TAB PO SCH ×3 (05:32→21:31)
--- NOTE | 2017-07-22 07:55 | PRG ---
DATE OF SERVICE: 07/22/2017 HISTORY OF PRESENT ILLNESS: Ms. Camargo is a very pleasant 66-year-old white female, patient of Dr. Brand that was admitted to the hospital with diastolic congestive heart failure. She was found to have a right pleural effusion that was tapped and tested. It revealed metastatic adenocarcinoma from her breast. She also had a urinary tract infection and was treated for both of those and eventu ally transferred to [facility] for continued diuresis, physical therapy and occupatio nal therapy. The patient states she had a good day yesterday and she is doing well so far today. We did increase her Lasix from 20 to 40. PHYSICAL EXAMINATION: VITAL SIGNS: Today reveal blood pressure last night was 136/63, pulse 74, respirations 20, O2 sat 93 % on 2 liters, T-max 99.4. GENERAL: This is a well-developed, well-nourished, very pleasant black female in no apparent distres s at this time. HEENT: Reveals normocephalic, nontraumatic cranium. Pupils equal, round, and reactive. Extraocular movements intact. Nose and throat are moist this morning. NECK: Supple, without mass, nodes or bruits. LUNGS: Chest is clear to auscultation. No rales, no rhonchi, no crackles are heard today. No cough is noted. HEART: Reveals a regular rate and rhythm without murmurs, gallops, rubs. No S3 or S4 is noted. ABDOMEN: Soft, nontender, without organomegaly, normal bowel sounds are noted. No rebound or guardi ng is noted. GENITOURINARY: Deferred. EXTREMITIES: Reveal no clubbing with trace edema. IMPRESSION: 1. Early congestive heart failure, much improved. 2. Continue Lasix 40 at this time. 3. Follow the patient's renal function closely. 4. Low back pain. 5. History of Clostridium difficile. 6. Malignant pleural effusion with metastatic breast cells. 7. Diabetes type 2, fairly well controlled, blood sugar this morning was 120. 8. Generalized weakness. PLAN: 1. Continue Lasix 40 mg each morning. 2. Followup the patient's renal indices. 3. Decrease Lantus from 40-38. 4. Stress ulcer prophylaxis. 5. Deep venous thrombosis prophylaxis. 6. Decubitus precautions. 7. Continue follow routine labs. 8. Monitor the patient's blood sugars with Accu-Cheks a.c. and at bedtime. 9. Monitor the patient's respiratory status. 10. Continue present therapy.
[2017-07-22] MEDS: Levemir Flexpen 100 UNITS/ML PEN SC SCH ×2 (08:46→21:32)
[2017-07-22] MEDS: Gabapentin 100 MG CAP PO SCH ×2 (08:47→21:31)
[2017-07-22] MEDS: Carvedilol 25 MG TAB PO SCH ×2 (08:47→17:49)
[2017-07-22] MEDS: Amlodipine 5 MG TAB PO SCH (08:47)
[2017-07-22] MEDS: Famotidine 20 MG TAB PO SCH (08:47)
[2017-07-22] MEDS: Saccharomyces boulardii 250 MG CAP PO SCH (08:47)
[2017-07-22] MEDS: Furosemide 40 MG TAB PO SCH (08:48)
[2017-07-22] MEDS: Ferrous Sulfate 325 MG TAB PO SCH ×2 (08:48→17:48)
[2017-07-22] MEDS: Ascorbic Acid 500 mg Chewable Tablet PO SCH ×2 (08:48→17:48)
[2017-07-22] MEDS: Docusate 100 MG CAP PO SCH ×2 (08:49→21:33)
[2017-07-22] MEDS: Senokot S 8.6-50 MG TAB PO SCH ×3 (08:49→21:33)
[2017-07-22] MEDS: HYDROcodone/Acetaminophen 5/325 mg Tablet PO PRN ×2 (08:50→21:31)
[2017-07-22] MEDS: Cyclobenzaprine 10 MG TAB PO PRN (21:31)
[2017-07-23] MEDS: Ondansetron ODT 4 MG TAB PO SCH ×3 (05:48→21:36)
[2017-07-23 05:51] VITALS: BMI 42.7
[2017-07-23] MEDS: Amlodipine 5 MG TAB PO SCH (08:12)
[2017-07-23] MEDS: Saccharomyces boulardii 250 MG CAP PO SCH (08:12)
[2017-07-23] MEDS: Ferrous Sulfate 325 MG TAB PO SCH ×2 (08:14→16:29)
[2017-07-23] MEDS: Gabapentin 100 MG CAP PO SCH ×2 (08:14→21:38)
[2017-07-23] MEDS: Famotidine 20 MG TAB PO SCH ×2 (08:14→21:39)
[2017-07-23] MEDS: Ascorbic Acid 500 mg Chewable Tablet PO SCH ×2 (08:14→16:31)
[2017-07-23] MEDS: Carvedilol 25 MG TAB PO SCH ×2 (08:14→16:30)
[2017-07-23] MEDS: Furosemide 40 MG TAB PO SCH (08:14)
[2017-07-23] MEDS: Levemir Flexpen 100 UNITS/ML PEN SC SCH ×2 (08:15→21:39)
[2017-07-23] MEDS: Docusate 100 MG CAP PO SCH ×2 (08:15→21:36)
[2017-07-23] MEDS: Senokot S 8.6-50 MG TAB PO SCH ×4 (08:15→21:36)
[2017-07-23] MEDS: HYDROcodone/Acetaminophen 5/325 mg Tablet PO PRN ×2 (08:18→21:37)
[2017-07-23] MEDS: Acetaminophen 325 MG TAB PO PRN (16:29)
[2017-07-23] MEDS: Cyclobenzaprine 10 MG TAB PO PRN (21:36)
--- NOTE | 2017-07-23 23:11 | PRG ---
DATE OF ADMISSION: 06/23/2017 DATE OF SERVICE: 07/23/2017 SUBJECTIVE: Ms. Camargo is a very pleasant 66-year-old black female, patient of Dr. Lan'nura who was admitted to the hospital with diastolic congestive heart failure. She was found to have a right pleural effusion that was tapped and tested. It revealed metastatic adenocarcinoma, most likely from her breast. She also was found to have urinary tract infection and treat for both of those eventual ly. Eventually, she was transferred to [facility] for continued diuresis, physical therap y and occupational therapy. The patient has had some increased swelling in her legs and so we did in crease her Lasix from 20 to 40 mg last Monday. OBJECTIVE: VITAL SIGNS: Reveal blood pressure this morning 122/60, pulse 67-69, respirations 20, O2 sat 94%-98% on room air, and T-max 98.3. GENERAL: This is a well-developed, well-nourished, very pleasant black female in no apparent distres s at this time. HEENT: Reveals normocephalic, nontraumatic cranium. Pupils are equally round and reactive. Extraoc ular movements intact. Nose and throat are slightly dry. NECK: Supple, without mass, nodes or bruits. CHEST: Clear to auscultation. No rales, rhonchi, or wheezes are heard. CARDIOVASCULAR: Reveals a regular rate and rhythm without murmurs, gallops or rubs. ABDOMEN: Soft, nontender, without organomegaly, normal bowel sounds are noted. No rebound or guardi ng is noted. : Deferred. EXTREMITIES: Reveal no clubbing, cyanosis, or edema. LABORATORY DATA: Reveals Accu-Cheks, fasting this morning 111, last night before bedtime 163, before supper 166, before lunch 135 and before breakfast yesterday morning 120. IMPRESSION: 1. Early congestive heart failure, much improved. 2. Continue Lasix 40 mg at this time. 3. Follow the patient's renal function closely. 4. Labs tomorrow morning. 5. Continue to follow low back pain. 6. History of Clostridium difficile in the distant past. 7. Malignant pleural effusion with metastatic breast cells. 8. Diabetes type 2, fairly well controlled. 9. Generalized weakness. PLAN: 1. Continue Lasix 40 mg each morning. 2. Lab tomorrow morning. 3. Decrease Lantus from 40 units to 38 units. 4. Stress ulcer prophylaxis. 5. DVT prophylaxis. 6. Decubitus precautions. 7. Follow labs. Routine labs. 8. Monitor the patient's blood sugars with Accu-Cheks a.c. and at bedtime. 9. Monitor patient's respiratory status.
[2017-07-24] MEDS: Ondansetron ODT 4 MG TAB PO SCH ×3 (05:41→20:47)
[2017-07-24 05:46] LABS: #Basophils 0.2 thou/uL (0.0-0.2); #Eosinphils 0.1 thou/uL (0.0-0.7); #Lymphocytes 1.3 thou/uL (1.20-3.40); #Monocytes 0.7 thou/uL (0.11-0.59); #Neutrophils 4.5 thou/uL (1.40-6.50); %Basophils 2.3 % (0.0-1.0); %Monocytes 10.1 % (0.0-10.0); %Neutrophils 66.7 % (42.0-75.0); ALT (SGPT) 9 U/L (8-55); AST (SGOT) 11 U/L (5-34); Albumin 3.1 g/dL (3.4-4.8); Alkaline Phosphatase 59 U/L (40-150); Anion Gap 12 mmol/L (10-20); Anisocytosis SLIGHT = 6-15 cells (100X) (0-5/hpf); BUN (Urea Nitrogen) 59 mg/dL (9.8-20.1); Bilirubin, Total 0.3 mg/dL (0.2-1.2); Calc. Creatinine Clearance 50 mL/min (70-130); Calcium 8.7 mg/dL (7.8-10.44); Carbon Dioxide 25 mmol/L (23-31); Chloride 110 mmol/L (98-107); Estimated GFR-MDRD 21; Globulin 4.7 g/dL (2.4-3.5); Glucose 128 mg/dL (80-115); Hemoglobin 7.7 g/dL (12.0-16.0); Hypochromia MARKED = >30 cells (100X) (0-5/hpf); MDiff Complete? YES; Mean Corpuscular HGB CONC 28.5 g/dL (32.0-36.0); Mean Corpuscular Hemoglobin 25.9 pg (27.0-31.0); Mean Corpuscular Volume 90.6 fl (81.0-99.0); Mean Platelet Volume 8.3 fL (7.4-10.4); PLT Morphology Comment Appears Adequate; Platelet Count 238 thou/uL (130-400); Potassium 6.1 mmol/L (3.5-5.1); Protein, Total 7.8 g/dL (6.0-8.3); RBC Distribution Width 18.6 % (11.5-14.5); Red Blood Cell (RBC) Count 2.99 mill/uL (4.20-5.40); Sodium 141 mmol/L (136-145); White Blood Cell (WBC) Count 6.8 thou/uL (4.8-10.8)
[2017-07-24] MEDS ORDERED: Furosemide 40 MG TAB PO SCH (07:30)
[2017-07-24] MEDS: Furosemide 40 MG TAB PO SCH (08:02)
[2017-07-24] MEDS: Levemir Flexpen 100 UNITS/ML PEN SC SCH ×2 (08:02→20:49)
[2017-07-24] MEDS: Ascorbic Acid 500 mg Chewable Tablet PO SCH ×2 (08:03→17:17)
[2017-07-24] MEDS: Carvedilol 25 MG TAB PO SCH ×2 (08:04→17:17)
[2017-07-24] MEDS: Ferrous Sulfate 325 MG TAB PO SCH ×2 (08:04→17:17)
[2017-07-24] MEDS: Amlodipine 5 MG TAB PO SCH (08:04)
[2017-07-24] MEDS: Famotidine 20 MG TAB PO SCH ×2 (08:05→20:47)
[2017-07-24] MEDS: Docusate 100 MG CAP PO SCH ×3 (08:05→20:47)
[2017-07-24] MEDS: Senokot S 8.6-50 MG TAB PO SCH ×5 (08:06→20:47)
[2017-07-24] MEDS: HYDROcodone/Acetaminophen 5/325 mg Tablet PO PRN ×3 (08:06→20:48)
[2017-07-24] MEDS: Saccharomyces boulardii 250 MG CAP PO SCH (08:06)
[2017-07-24] MEDS: Gabapentin 100 MG CAP PO SCH ×2 (08:13→20:48)
--- NOTE | 2017-07-24 09:30 | PRG ---
DATE OF SERVICE: 07/24/2017 SUBJECTIVE: The patient is an elderly black female with history of diastolic heart failure as well a s metastatic breast cancer, urinary tract infection who has been admitted to the skilled unit for phy sical therapy and for treatment of her congestive heart failure. Her metastatic pleural effusion julieta ears to be uncontrolled with tamoxifen. She does appear to be improving on 40 mg of Lasix; however, her renal function is slowly deteriorating, but it appears that she was requiring 40 mg because of pe rsistent edema. She is complaining of pain in her hips as she is unable to take nonsteroidal anti-in flammatory drugs because of her renal dysfunction and is being given hydrocodone 1 every 4 hours as n eeded for this with good control. She has been cooperating with therapy and most recent notes state that she is progressing with supervision for transfers, standing and walking 25 feet with complete gu brooke assistance, but is still unsafe and needs increased strength and balance in her transfers. She d enies any shortness of breath at this time, but does state that she has persistent edema and has her main complaint of pain in her hips and knees. OBJECTIVE: VITAL SIGNS: Vital signs show her temperature is 97, pulse 67, respirations 18, O2 sats 97%, blood p ressure 120/56. LABORATORY: Accu-Cheks show sodium 141, potassium 6.1, chloride 110, bicarbonate 25, BUN 59, creatin ine 2.28. BNP 860 which is worsening since admission. SKIN AND EXTREMITIES: Skin and extremities do show 1-2+ edema. LUNGS: Lungs show good breath sounds, but decreased somewhat in the bases. CARDIAC: Cardiac examination showed regular rhythm. ABDOMEN: Soft, nontender. SKIN AND EXTREMITIES: Skin and extremities do show crepitus and tenderness on flexion, extension, ro tation of the knees and hips. ASSESSMENT: 1. Diastolic heart failure, appears to be symptomatically improved, but still with elevated BNP and worsening renal function and peripheral edema. We will continue with furosemide. We will need to mo nitor renal function closely. 2. 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 3. Severe degenerative joint disease somewhat limiting therapy and only able to take narcotics as re nal function is too poor for nonsteroidals. 3. Acute on chronic renal failure most likely with cardiorenal syndrome on top of chronic kidney dis ease with GFR ranging from 17 on admission to 31 with decrease in the furosemide, but then back to 21 with an increase in furosemide when congestive heart failure is exacerbated. The patient's prognosis is guarded because of her multiple diagnoses and because of her persistent di astolic heart failure and worsening acute on chronic renal failure with diuresis, but does appear to be getting stronger and will continue on therapy and with hydrocodone for pain. We will continue on 40 of Lasix. Monitor renal function closely and will repeat chest x-ray to ensure no worsening of pl eural effusion.
--- NOTE | 2017-07-24 10:46 | RAD ---
PORTABLE CHEST 1 VIEW: Date: 07/24/17 Time: 0943 hours HISTORY: Right pleural effusion, CHF, breast cancer. FINDINGS: Comparison made with exam of 07/12/17. The heart size is enlarged. Opacity in the right lung base, likely a combination of effusion and atel ectatic change, unchanged. No pneumothoraces are seen. IMPRESSION: Stable exam. POS: [facility]
[2017-07-24] MEDS: Cyclobenzaprine 10 MG TAB PO PRN (20:48)
[2017-07-25] MEDS: Ondansetron ODT 4 MG TAB PO SCH ×3 (05:10→21:03)
[2017-07-25 06:03] LABS: Anion Gap 12 mmol/L (10-20); BUN (Urea Nitrogen) 58 mg/dL (9.8-20.1); Calc. Creatinine Clearance 51 mL/min (70-130); Calcium 8.7 mg/dL (7.8-10.44); Carbon Dioxide 25 mmol/L (23-31); Chloride 108 mmol/L (98-107); Estimated GFR-MDRD 22; Glucose 103 mg/dL (80-115); Potassium 5.8 mmol/L (3.5-5.1); Sodium 139 mmol/L (136-145)
--- NOTE | 2017-07-25 06:45 | PRG ---
DATE OF SERVICE: 07/25/2017 SUBJECTIVE: The patient feels well, lying in the bed with no complaints. Rested well through the ght. States that her pain is improved, still persistent with therapy, but improved with pain medicat ion. Denies any shortness of breath at rest. Still requiring oxygen. OBJECTIVE: VITAL SIGNS: O2 sat is 94% on 2 liters, temperature is 98.9, pulse 72, respirations 20, O2 sat as me ntioned above. Blood pressure is 121/61. LUNGS: Lungs show decreased breath sounds in the right base, but chest x-ray shows stable right pleu ral effusion. CARDIAC: Cardiac examination shows regular rhythm. SKIN AND EXTREMITIES: Skin and extremities still show 2+ edema. ABDOMEN: Abdomen is soft and nontender. EXTREMITIES: Knees and hips show tenderness on palpation. LABORATORY: Sodium this morning is 139, potassium 5.8, chloride 108, bicarbonate 25, BUN 58, creatin ine 2.25, glucose 103. BNP yesterday was still elevated to 860. ASSESSMENT: 1. Stable cancer of the breast with metastasis to the right pleura controlled on tamoxifen. 2. Diastolic heart failure, persistent elevation of BNP and edema and stable, but deteriorated renal function on furosemide 40 daily, and will watch closely as continued on this dose. 3. Severe degenerative joint disease limiting therapy, but controlled with narcotics and cooperating well with therapy. 4. Chronic kidney disease stage 4 with deterioration with diuretics, but appears to have stabilized. We will monitor closely. PLAN: 1. Continue furosemide 40 daily. 2. Repeat basic metabolic profile in a.m. 3. Continue PT, OT with hydrocodone prior to therapy. 4. Decreased oxygen to 1 liter daily and monitor O2 sats.
[2017-07-25] MEDS ORDERED: Furosemide 40 MG TAB PO SCH (07:30)
[2017-07-25] MEDS: Furosemide 40 MG TAB PO SCH (07:59)
[2017-07-25] MEDS: Levemir Flexpen 100 UNITS/ML PEN SC SCH ×2 (07:59→21:04)
[2017-07-25] MEDS: Ascorbic Acid 500 mg Chewable Tablet PO SCH ×2 (08:00→17:49)
[2017-07-25] MEDS: Carvedilol 25 MG TAB PO SCH ×2 (08:00→17:49)
[2017-07-25] MEDS: Ferrous Sulfate 325 MG TAB PO SCH ×2 (08:00→17:49)
[2017-07-25] MEDS: Amlodipine 5 MG TAB PO SCH (08:00)
[2017-07-25] MEDS: Famotidine 20 MG TAB PO SCH ×2 (08:01→21:03)
[2017-07-25] MEDS: Saccharomyces boulardii 250 MG CAP PO SCH (08:01)
[2017-07-25] MEDS: Gabapentin 100 MG CAP PO SCH ×2 (08:01→21:03)
[2017-07-25] MEDS: Docusate 100 MG CAP PO SCH ×2 (08:01→21:03)
[2017-07-25] MEDS: Senokot S 8.6-50 MG TAB PO SCH ×4 (08:01→21:04)
[2017-07-25] MEDS: HYDROcodone/Acetaminophen 5/325 mg Tablet PO PRN ×3 (08:02→17:49)
[2017-07-25] MEDS: Cyclobenzaprine 10 MG TAB PO PRN (21:03)
[2017-07-26] MEDS: Ondansetron ODT 4 MG TAB PO SCH ×3 (05:34→21:13)
[2017-07-26 06:02] LABS: Anion Gap 12 mmol/L (10-20); BUN (Urea Nitrogen) 61 mg/dL (9.8-20.1); Calc. Creatinine Clearance 51 mL/min (70-130); Calcium 8.5 mg/dL (7.8-10.44); Carbon Dioxide 25 mmol/L (23-31); Chloride 109 mmol/L (98-107); Estimated GFR-MDRD 22; Glucose 100 mg/dL (80-115); Potassium 5.6 mmol/L (3.5-5.1); Sodium 140 mmol/L (136-145)
--- NOTE | 2017-07-26 07:31 | PRG ---
DATE OF SERVICE: 07/26/2017 SUBJECTIVE: The patient lying in bed, resting well with no pain at rest. She is cooperating with peyton caraballo, but no shortness of breath or chest pain, good diuresis. OBJECTIVE: GENERAL: Physical therapy; however, states that the patient has plateaued, is able to walk 30 feet a nd transfer with only standby assistance and wishes to discuss discharge planning with her daughter a s she is going to live with her daughter. VITAL SIGNS: Show O2 sat is 96% on 2 liters, temperature is 98, pulse 86, respirations 18, blood pre ssure 132/56. LUNGS: Clear with decreased breath sounds in the right base. CARDIAC: Examination shows regular rhythm. ABDOMEN: Soft and nontender, but obese. SKIN AND EXTREMITIES: Still show 1-2+ edema. LABORATORY DATA: Show sodium of 140, potassium 5.6, chloride 109, bicarbonate 25, BUN 61, creatinine 2.23, GFR 22, stable. Most recent hemoglobin is stable at 7.7. ASSESSMENT: 1. Diastolic heart failure, appears to be stabilizing and improving on low dose furosemide. 2. Metastatic breast cancer with controlled malignant effusion on tamoxifen. 3. Severe deconditioning, improved, but appears to be stabilized. 4. Significant degenerative joint disease limiting further improvement, controlled only on narcotics . PLAN: PT, OT. I discuss discharge planning with daughter. Discontinue oxygen and determine if need for oxygen as an outpatient schedule. Case management to set up appointment with PCP on discharge.
[2017-07-26] MEDS: Senokot S 8.6-50 MG TAB PO SCH ×4 (09:06→21:13)
[2017-07-26] MEDS: Cyclobenzaprine 10 MG TAB PO PRN (09:06)
[2017-07-26] MEDS: Ferrous Sulfate 325 MG TAB PO SCH ×2 (09:06→17:44)
[2017-07-26] MEDS: Docusate 100 MG CAP PO SCH ×2 (09:06→21:13)
[2017-07-26] MEDS: Carvedilol 25 MG TAB PO SCH ×2 (09:06→17:44)
[2017-07-26] MEDS: Furosemide 40 MG TAB PO SCH (09:06)
[2017-07-26] MEDS: Ascorbic Acid 500 mg Chewable Tablet PO SCH ×2 (09:06→17:44)
[2017-07-26] MEDS: Famotidine 20 MG TAB PO SCH ×2 (09:07→21:13)
[2017-07-26] MEDS: Amlodipine 5 MG TAB PO SCH (09:07)
[2017-07-26] MEDS: Gabapentin 100 MG CAP PO SCH ×2 (09:09→21:13)
[2017-07-26] MEDS: Saccharomyces boulardii 250 MG CAP PO SCH (09:09)
[2017-07-26] MEDS: HYDROcodone/Acetaminophen 5/325 mg Tablet PO PRN ×2 (09:09→13:57)
[2017-07-26] MEDS: Levemir Flexpen 100 UNITS/ML PEN SC SCH ×2 (09:11→21:14)
[2017-07-27] MEDS: Ondansetron ODT 4 MG TAB PO SCH ×3 (05:16→21:20)
[2017-07-27] MEDS: Senokot S 8.6-50 MG TAB PO SCH ×4 (08:10→21:20)
[2017-07-27] MEDS: Docusate 100 MG CAP PO SCH ×2 (08:10→21:20)
[2017-07-27] MEDS: Ascorbic Acid 500 mg Chewable Tablet PO SCH ×2 (08:17→17:24)
[2017-07-27] MEDS: Famotidine 20 MG TAB PO SCH ×2 (08:18→21:19)
[2017-07-27] MEDS: Carvedilol 25 MG TAB PO SCH ×2 (08:18→17:24)
[2017-07-27] MEDS: Gabapentin 100 MG CAP PO SCH ×2 (08:18→21:19)
[2017-07-27] MEDS: Ferrous Sulfate 325 MG TAB PO SCH ×2 (08:18→17:24)
[2017-07-27] MEDS: Saccharomyces boulardii 250 MG CAP PO SCH (08:18)
[2017-07-27] MEDS: Cyclobenzaprine 10 MG TAB PO PRN (08:18)
[2017-07-27] MEDS: Amlodipine 5 MG TAB PO SCH (08:19)
[2017-07-27] MEDS: Levemir Flexpen 100 UNITS/ML PEN SC SCH ×2 (08:20→21:19)
[2017-07-27] MEDS: Furosemide 40 MG TAB PO SCH (08:20)
[2017-07-27] MEDS: HYDROcodone/Acetaminophen 5/325 mg Tablet PO PRN ×2 (08:21→17:29)
--- NOTE | 2017-07-27 08:32 | PRG ---
DATE OF SERVICE: 07/27/2017 SUBJECTIVE: The patient is lying in bed, feels well at rest, but states that she did have more probl ems with shortness of breath yesterday and exhaustion with therapy and did require placement of oxyge n. She did have some mild abdominal pain which resolved with bowel movement; however, she does state that she feels she will be not available to go home and will need to schedule conference with case azeb alonzo and her family. OBJECTIVE: VITAL SIGNS: Blood pressure is 129/60, O2 sats 93% on 1 liter, temperature is 98, pulse 71, respirat ions 20. LUNGS: Lungs are clear with decreased breath sounds in the base. CARDIAC: Cardiac examination shows regular rhythm. SKIN AND EXTREMITIES: Skin and extremities show 1+ edema. ABDOMEN: Soft, nontender. Accu-Cheks stable at 104 to 223. ASSESSMENT: 1. Persistent diastolic heart failure limiting further progression of therapy. 2. Degenerative joint disease appears to be stable on pain medication. 3. Breast cancer metastasis to the right ____, appears to be stable on tamoxifen. 4. Severe deconditioning appears to have plateaued with inability to maintain ADLs. PLAN: The family to set up conference with case management to determine discharge planning. Continu e PT, OT as tolerated. Continue oxygen and plan for discharge home on oxygen, continue gentle diures is and monitoring of vital signs and renal function with diuresis.
[2017-07-27] MEDS ORDERED: Cepastat Lozenges 1 LOZ PO PRN (22:19)
[2017-07-28] MEDS: Ondansetron ODT 4 MG TAB PO SCH ×4 (06:04→21:24)
[2017-07-28] MEDS: Gabapentin 100 MG CAP PO SCH ×2 (08:05→20:50)
[2017-07-28] MEDS: Famotidine 20 MG TAB PO SCH ×2 (08:05→20:50)
[2017-07-28] MEDS: Saccharomyces boulardii 250 MG CAP PO SCH (08:05)
[2017-07-28] MEDS: Ferrous Sulfate 325 MG TAB PO SCH ×2 (08:06→16:35)
[2017-07-28] MEDS: Ascorbic Acid 500 mg Chewable Tablet PO SCH ×2 (08:06→16:35)
[2017-07-28] MEDS: Amlodipine 5 MG TAB PO SCH (08:07)
[2017-07-28] MEDS: Carvedilol 25 MG TAB PO SCH ×2 (08:08→16:35)
[2017-07-28] MEDS: Furosemide 40 MG TAB PO SCH ×3 (08:08→13:15)
[2017-07-28] MEDS: Docusate 100 MG CAP PO SCH ×2 (08:09→20:50)
[2017-07-28] MEDS: Senokot S 8.6-50 MG TAB PO SCH ×4 (08:09→20:50)
[2017-07-28] MEDS: Levemir Flexpen 100 UNITS/ML PEN SC SCH ×2 (08:12→20:38)
--- NOTE | 2017-07-28 11:36 | RAD ---
RADIOGRAPH CHEST 1 VIEW: Date: 07/28/17. Time: 10:01 a.m. HISTORY: A 66-year-old female with pleural effusion, congestive heart failure, and breast cancer. COMPARISON: 07/24/17. FINDINGS: The left breast shadow is much smaller than the right, or absent. There is cardiomegaly and pulmonar y vascular engorgement. There is heterogeneous opacification of the right mid and lower lung zones, with an appearance consistent with a combination of pleural effusion and underlying severe airspace o pacities, extending from the right hilum to the right base. There has been no major interval change. No pneumothorax. IMPRESSION: 1. Moderate or large right pleural effusion. 2. Right lower lobe and right middle lobe consolidation. 3. Congestive heart failure. 4. No interval change. 5. Status post left mastectomy. MAURICIO [] POS: [facility]
[2017-07-29 05:45] LABS: Anion Gap 10 mmol/L (10-20); BUN (Urea Nitrogen) 62 mg/dL (9.8-20.1); Calc. Creatinine Clearance 56 mL/min (70-130); Calcium 8.5 mg/dL (7.8-10.44); Carbon Dioxide 27 mmol/L (23-31); Chloride 109 mmol/L (98-107); Estimated GFR-MDRD 24; Glucose 101 mg/dL (80-115); Potassium 5.3 mmol/L (3.5-5.1); Sodium 141 mmol/L (136-145)
[2017-07-29] MEDS: Ondansetron ODT 4 MG TAB PO SCH ×2 (07:18→08:27)
[2017-07-29 07:56] VITALS: BP 141/82; TEMP 98.1
[2017-07-29] MEDS: Levemir Flexpen 100 UNITS/ML PEN SC SCH (08:22)
[2017-07-29] MEDS: Ascorbic Acid 500 mg Chewable Tablet PO SCH (08:23)
[2017-07-29] MEDS: Amlodipine 5 MG TAB PO SCH (08:24)
[2017-07-29] MEDS: Carvedilol 25 MG TAB PO SCH (08:24)
[2017-07-29] MEDS: Ferrous Sulfate 325 MG TAB PO SCH (08:24)
[2017-07-29] MEDS: Docusate 100 MG CAP PO SCH (08:25)
[2017-07-29] MEDS: Gabapentin 100 MG CAP PO SCH (08:26)
[2017-07-29] MEDS: Famotidine 20 MG TAB PO SCH (08:26)
[2017-07-29] MEDS: Saccharomyces boulardii 250 MG CAP PO SCH (08:26)
[2017-07-29] MEDS: Senokot S 8.6-50 MG TAB PO SCH (08:26)
[2017-07-29] MEDS: Furosemide 40 MG TAB PO SCH (08:26)
--- NOTE | 2017-07-29 10:08 | PRG ---
DATE OF SERVICE: 07/29/2017 SUBJECTIVE: The patient is lying in bed, no distress, but has some dyspnea on minimal exertion. Den ied any chest pain, palpitations, fever or chills. OBJECTIVE: VITAL SIGNS: Shows her blood pressure of 141/82, pulse 72, temperature is 98, O2 sats 98% on 2 liter s. LUNGS: Show decreased breath sounds in the right base. CARDIAC EXAMINATION: Shows regular rhythm. ABDOMEN: Soft, nontender. SKIN AND EXTREMITIES: Showed trace to 1+ edema. X-RAY FINDINGS: Chest x-ray shows persistent possibly increased right lower lobe effusion and atelec tasis. ASSESSMENT: 1. Persistent diastolic failure, which appears to be slowly improving. 2. Possible increasing right pleural effusion and atelectasis causing exertional hypoxemia. We will get CT scan to further evaluate any change. 3. Severe deconditioning with no significant change recently and inability to maintain ADLs with the rapy limited by her exertional hypoxemia. 4. Degenerative joint disease, stable. PLAN: 1. CT scan of the chest to further evaluate increase in pleural effusion and need for possible thora centesis and pleurodesis. 2. I discussed the situation with the patient and family, as she appears to be plateaued with her th erapy at this level and may need to be discharged home or to unskilled facility if no further treatme nt of the effusion is necessary.
--- NOTE | 2017-07-29 11:51 | CT ---
CT THORAX NONCONTRAST: DATE: 07/29/17. TIME: 10:26 a.m. HISTORY: A 66-year-old female with right pleural effusion and atelectasis, with increasing dyspnea. COMPARISON: No prior chest CTs. FINDINGS: There is cardiomegaly with 4-chamber dilation. No thoracic aortic aneurysm. Diffuse bilateral pulmo nary vascular engorgement. There is a right pleural effusion that is distributed circumferentially a long the right hemithorax, including lobulated components, consistent with loculations. Trachea and mainstem bronchi are patent and clear. Multiple patchy airspace opacities throughout the right lower lobe, somewhat severe. Right perihilar upper lobe milder patchy nodular airspace densities. Airsp martínez densities in the right middle lobe. Air bronchograms on the right. Mild nonspecific pulmonary p arenchymal densities in the left lower lobe centrally. No left pleural effusion. No pneumothorax. Calcified gallstones are partially visualized in the gallbladder. There are multiple scattered mildl y enlarged right axillary lymph nodes. The left breast is surgically absent. There is what could ei ther represent edema or scar tissues in the left axilla extending to the left supraclavicular neck an d left arm. IMPRESSION: 1. Loculated small to moderate sized right pleural effusion suspicious for empyema. 2. Extensive airspace densities in the right lung, worst in the right lower lobe (but also in the ri ght upper lobe and right middle lobe): evidence for right-sided pneumonia. 3. Cardiomegaly with 4-chamber dilation. 4. Cholelithiasis. 5. Right axillary lymphadenopathy. 6. Status post left mastectomy. 7. Left axillary and left arm edema vs scar tissue. Favor edema. MAURICIO R POS: [facility]
--- NOTE | 2017-07-31 16:06 | DIS ---
FINAL DIAGNOSES: 1. Metastatic breast cancer to the right pleura with malignant complicated pleural effusion limiting her therapy with increased dyspnea on exertion. 2. Diastolic heart failure which appears to be persistent, but stable on diuretics with no evidence of significant arrhythmia. 3. Severe deconditioning, improved slightly, but at baseline and plateaued at this time, is unable t o make an improvement in the last week secondary to her shortness of breath and deconditioning. 4. Degenerative joint disease, hip and knee appears to be improved on narcotics with no limitation o f therapy. 5. Type 2 diabetes, controlled to goal. 6. Chronic kidney disease, stage 4, stable. HOSPITAL COURSE: The patient is an unfortunate 66-year-old white female with a history of diastolic heart failure as well as cancer of the breast with recurrent pleural effusion to the right pleura who was admitted to the skilled unit for PT and OT and had been progressing on therapy. She was able to get up out of the bed and transfer with assistance to the bathroom with control of her pain on narco tics and limitation of her therapy from pain. She has had diastolic heart failure with occasional ex acerbation, but had been improving on furosemide and was stable on this, but had plateaued with her t herapy over the preceding week prior to discharge because of increasing dyspnea and shortness of skylar th. Chest x-ray was done as well as CT which showed worsening right pleural effusion, despite a winters ge in her antiestrogen medicine from Anastrozole to Tamoxifen on recommendation of her oncologist, Dr Andrew Edmonds, therefore felt that her pleural effusion was limiting her exercise tolerance as she was martin ving exertional hypoxemia on therapy and therefore she was transferred to [facility] for definitive evaluation and treatment of the pleural effusion. It is felt that she was not kellen ing any further improvement of his therapy because of this and would not benefit from further therapy unless her pleural effusion and diastolic heart failure was improved. On discharge, her vital signs showed her to have blood pressure 141/82, pulse 72, temperature 98, O2 sats 94% on 2 liters, but decreases to 88% with exercise. White count 6800, hematocrit 27, hemoglobi n 7.7. Sodium was 141, potassium 5.3, chloride 109, BUN 62, creatinine 2.05. Accu-Cheks 110-140. C T scan as mentioned above showed loculated moderate size right pleural effusion suspicious for empyem a with extensive airspace densities in the right lung, evidence for right-sided pneumonia and 4 chamb er cardiomegaly.
== END 2017-07-29 11:50 | disposition short-term general hospital (02) | DRG 371 ==
LOC: NAV ACUTE 14:08
PROVIDERS: ADMIT Internal Medicine; ATTEND Internal Medicine
PROC: 30233N1 Transfusion of Nonautologous Red Blood Cells into Peripheral Vein, Percutaneous Approach (ICD-10-PCS; principal; 2017-06-30)
PROC: 3E0U3BZ Introduction of Anesthetic Agent into Joints, Percutaneous Approach (ICD-10-PCS; 2017-07-10)
PROC: 3E0U33Z Introduction of Anti-inflammatory into Joints, Percutaneous Approach (ICD-10-PCS; 2017-07-10)
DX: A04.72 Enterocolitis due to Clostridium difficile, not specified as recurrent (principal); I50.33 Acute on chronic diastolic (congestive) heart failure; J91.0 Malignant pleural effusion; N17.9 Acute kidney failure, unspecified; N18.4 Chronic kidney disease, stage 4 (severe); Z68.41 Body mass index [BMI] 40.0-44.9, adult; R53.1 Weakness; E11.22 Type 2 diabetes mellitus with diabetic chronic kidney disease; E11.42 Type 2 diabetes mellitus with diabetic polyneuropathy; E66.01 Morbid (severe) obesity due to excess calories; E87.5 Hyperkalemia; R09.02 Hypoxemia; M54.5 Low back pain; K21.9 Gastro-esophageal reflux disease without esophagitis; M17.0 Bilateral primary osteoarthritis of knee; M16.0 Bilateral primary osteoarthritis of hip; E11.65 Type 2 diabetes mellitus with hyperglycemia; C50.919 Malignant neoplasm of unspecified site of unspecified female breast; R00.0 Tachycardia, unspecified; Z79.4 Long term (current) use of insulin; Z79.899 Other long term (current) drug therapy; D64.9 Anemia, unspecified
CPT/HCPCS: 36415; 36416; 36430; 70450; 71045; 71250; 80048; 80053; 82140; 83880; 85025; 86850; 86900; 86901; 87324; 87449; 87493; A4216; G0283-GP; G8978-GP-CJ; G8979-GP-CI; J1815; J2001; J2920; J7620; P9016; Q0162; Q0167